=== PATIENT | female | born 1935 | race Caucasian/White ===

== ENCOUNTER → 2016-11-11 | Outpatient (CLI) | payer MEDICARE, MEDICAID ==
[2016-11-11 08:40] LABS: HEMOGLOBIN 14.2 g/dL (12.0-15.5); HGB HCT DIFFERENCE 0.6; MEAN CORPUSCULAR HEMOGLOBIN 32.4 pg (27.0-33.4); MEAN CORPUSCULAR HGB CONC 33.9 g/dL (32.0-36.0); MEAN CORPUSCULAR VOLUME 96 fl (80-97); RED BLOOD COUNT 4.39 10^6/uL (3.72-5.28); RED CELL DISTRIBUTION WIDTH 13.3 % (11.5-14.0); WHITE BLOOD COUNT 7.2 10^3/uL (4.0-10.5)
[2016-11-11 09:04] LABS: ANION GAP 11 (5-19); BLOOD UREA NITROGEN 12 mg/dL (7-20); CALCIUM 9.9 mg/dL (8.4-10.2); CARBON DIOXIDE 31 mmol/L (22-30); CHLORIDE 101 mmol/L (98-107); CREATININE RESULT 1.05 mg/dL (0.52-1.25); GLUCOSE 90 mg/dL (75-110); POTASSIUM 3.4 mmol/L (3.6-5.0); SODIUM 142.8 mmol/L (137-145)
[2016-11-11 18:56] LABS: APPEARANCE,URINE CLEAR; BILIRUBIN,URINE NEGATIVE (NEGATIVE); GLUCOSE, URINE NEGATIVE (NEGATIVE); KETONES,URINE NEGATIVE (NEGATIVE); LEUKOCYTE ESTERASE,URINE SMALL (NEGATIVE); NITRITE,URINE NEGATIVE (NEGATIVE); PROTEIN,URINE NEGATIVE (NEGATIVE); UROBILINOGEN,URINE NEGATIVE mg/dL (<2.0)
== END ==
LOC: OD 07:29
PROVIDERS: ATTEND Internal Medicine Nephrology
DX: I12.9 Hypertensive chronic kidney disease with stage 1 through stage 4 chronic kidney disease, or unspecified chronic kidney disease (principal); N18.3 Chronic kidney disease, stage 3 (moderate)
CPT/HCPCS: 36415; 80048; 81001; 85027

== ENCOUNTER 2016-11-15 19:55 | Emergency (ER) | payer MEDICARE, MEDICAID ==
--- NOTE | 2016-11-15 21:00 | ER Document Report ---
ED Medical Screen (RME) - General Chief Complaint: Laceration Stated Complaint: RIGHT ARM LACERATION Notes: patient is a 81 year old female pw right forearm laceration cut it on a bracket on the fridge, unsure of material not UTD on tetanus full rom of hand, down to subq fat, no visible tendon or bone I have greeted and performed a rapid initial assessment of this patient. A comprehensive ED assessment and evaluation of the patient, analysis of test results and completion of the medical decision making process will be conducted by additional ED providers. TRAVEL OUTSIDE OF THE [place] IN LAST 30 DAYS: No - Related Data Allergies/Adverse Reactions: No Known Allergies Allergy (Verified 12/29/11 18:06) Past Medical History - Social History Chew tobacco use (# tins/day): No Frequency of alcohol use: None Drug Abuse: None - Past Medical History Cardiac Medical History: Reports: Hx Hypertension Renal/ Medical History: Denies: Hx Peritoneal Dialysis Physical Exam - Vital signs Vitals: Temp Pulse Resp BP Pulse Ox 98.5 F 64 16 151/64 H 95 11/15/16 20:23 11/15/16 20:23 11/15/16 20:23 11/15/16 20:23 11/15/16 20:23 Course - Vital Signs Vital signs: Temp Pulse Resp BP Pulse Ox 98.5 F 64 16 151/64 H 95 11/15/16 20:23 11/15/16 20:23 11/15/16 20:23 11/15/16 20:23 11/15/16 20:23
[2016-11-15] MEDS ORDERED: DIPH/PERTUSS(ACELL)/TETANUS VAC/PF 0.5 ML SYR (>=10YO) IM ONE (21:01)
[2016-11-16] MEDS ORDERED: LIDOCAINE 1%/EPINEPHRINE INJ 20 ML VIAL INJ ONE (00:12)
--- NOTE | 2016-11-16 00:13 | ER Document Report ---
ED Wound - General Chief Complaint: Laceration Stated Complaint: RIGHT ARM LACERATION Time seen by provider: 00:12 Mode of Arrival: Ambulatory Information source: Patient TRAVEL OUTSIDE OF THE [place] IN LAST 30 DAYS: No - HPI Patient complains to provider of: Laceration Occurred: Just prior to arrival Onset/Duration: Sudden Quality of pain: Achy Severity: Mild Pain Level: 1 Context: Injury Skin Color: Normal Capillary refill: < 3 seconds Sensations intact: Yes Distal pulses present: Yes Associated Symptoms: None Notes: Patient is an 81-year-old female presenting to the emergency room complaining of laceration to her right forearm, states she was reaching into the refrigerator to put something away when she caught it on the sharp part of the shelf causing a laceration, she initially put a bandage on it and reported to the emergency room when it wouldn't stop bleeding, she denies any other injury or trauma, last tetanus shot is unknown - Related Data Allergies/Adverse Reactions: No Known Allergies Allergy (Verified 12/29/11 18:06) Past Medical History - General Information source: Patient - Social History Smoking Status: Never Smoker Chew tobacco use (# tins/day): No Frequency of alcohol use: None Drug Abuse: None Family History: Reviewed & Not Pertinent Patient has suicidal ideation: No Patient has homicidal ideation: No - Past Medical History Cardiac Medical History: Reports: Hx Hypertension Renal/ Medical History: Denies: Hx Peritoneal Dialysis - Immunizations Hx Diphtheria, Pertussis, Tetanus Vaccination: Yes - NOT UTD Review of Systems - Review of Systems Constitutional: No symptoms reported EENT: No symptoms reported Cardiovascular: No symptoms reported Respiratory: No symptoms reported Gastrointestinal: No symptoms reported Genitourinary: No symptoms reported Female Genitourinary: No symptoms reported Musculoskeletal: No symptoms reported Skin: See HPI Hematologic/Lymphatic: No symptoms reported Neurological/Psychological: No symptoms reported -: Yes All other systems reviewed and negative Physical Exam - Vital signs Vitals: Temp Pulse Resp BP Pulse Ox 98.5 F 64 16 151/64 H 95 11/15/16 20:23 11/15/16 20:23 11/15/16 20:23 11/15/16 20:23 11/15/16 20:23 Interpretation: Normal - Notes Notes: - General General appearance: Appears well, Alert In distress: None - HEENT Head: Normocephalic, Atraumatic Eyes: Normal Conjunctiva: Normal Extraocular movements intact: Yes Eyelashes: Normal Pupils: PERRL - Respiratory Respiratory status: No respiratory distress - Cardiovascular Rhythm: Regular - Abdominal Inspection: Normal - Back Back: Normal - Extremities General upper extremity: 3 cm laceration to dorsal surface of right proximal forearm, small amount of adipose tissue exposed, distal sensation and motor is intact with 2+ radial pulses General lower extremity: Normal inspection - Neurological Neuro grossly intact: Yes Orientation: AAOx4 [place] Coma Scale Eye Opening: Spontaneous [place] Coma Scale Verbal: Oriented [place] Coma Scale Motor: Obeys Commands [place] Coma Scale Total: 15 - Psychological Associated symptoms: Normal affect, Normal mood - Skin Skin Temperature: Warm Skin Moisture: Dry Skin Color: Normal Course - Re-evaluation Re-evalutation: 11/16/16 00:53 Patient with laceration repaired using sutures, see procedure note, she was given a tetanus shot emergency room and discharged with instructions for follow- up, advised to return if symptoms worsen, patient acknowledges understanding and agreement with this - Vital Signs Vital signs: Temp Pulse Resp BP Pulse Ox 98.5 F 64 16 151/64 H 95 11/15/16 20:23 11/15/16 20:23 11/15/16 20:23 11/15/16 20:23 11/15/16 20:23 Procedures - Laceration/Wound Repair Right Arm Time completed: 00:52 Wound length (cm): 3 Wound's Depth, Shape: Linear Laceration pre-procedure: Sterile PPE donned, Sterile drapes applied, Shur- Clens applied Anesthetic type: 1% Lidocaine w/epi Volume Anesthetic (mLs): 6 Wound explored: Clean Irrigated w/ Saline (mLs): 300 Wound Repaired With: Sutures Suture Size/Type: 4:0, Nylon Number of Sutures: 3 Layer Closure?: No Post-procedure wound care: Sterile dressing applied Post-procedure NV exam normal: Yes Complications: No Adult Front & Back picture: 1 - 3 cm laceration Discharge - Discharge Clinical Impression: Forearm laceration Qualifiers: Encounter type: initial encounter Laterality: right Qualified Code(s): S51.811A - Laceration without foreign body of right forearm, initial encounter Condition: Stable Disposition: HOME, SELF-CARE Instructions: Antibiotic Ointment Protection (OM), Laceration Care (OM), Tetanus Immunization Given ([facility]), Soap Cleansing ([facility]) Additional Instructions: Follow up with your primary care provider in 2-3 days for wound check. Keep wound clean and covered with antibiotic ointment and a clean dressing. Gently rinse with warm water and soap twice daily. Sutures to be removed in 10-14 days. Return to the emergency room immediately if symptoms worsen or any additional concerns. Referrals: JESSIE JOHNSON MD [Primary Care Provider] - Follow up as needed
[2016-11-16] MEDS ORDERED: DIPH/PERTUSS(ACELL)/TETANUS VAC/PF 0.5 ML SYR (>=10YO) IM ONE (00:24)
[2016-11-16 01:04] VITALS: BP 111/65
== END 2016-11-16 01:08 | disposition home or self-care (01) ==
LOC: ER 19:55
PROC: 0HQDXZZ Repair Right Lower Arm Skin, External Approach (ICD-10-PCS; principal; 2016-11-15)
DX: S51.811A Laceration without foreign body of right forearm, initial encounter (principal); W45.8XXA Other foreign body or object entering through skin, initial encounter
CPT/HCPCS: 99283; 90715; 12002; J3490

== ENCOUNTER 2016-11-22 07:06 | Emergency (ER) | payer MEDICARE, MEDICAID ==
[2016-11-22 07:26] VITALS: BP 153/76
--- NOTE | 2016-11-22 07:43 | ER Document Report ---
HPI - HPI Patient complains to provider of: suture removal Onset: Other - 11/15 16 Pain Level: Denies Associated Symptoms: None Exacerbated by: Denies Relieved by: Denies Similar symptoms previously: Yes Recently seen / treated by doctor: Yes - REPRODUCTIVE Reproductive: DENIES: : - DERM Skin Color: Normal Past Medical History - General Information source: Patient - Social History Smoking Status: Never Smoker Chew tobacco use (# tins/day): No Frequency of alcohol use: None Drug Abuse: None Family History: Reviewed & Not Pertinent Patient has suicidal ideation: No Patient has homicidal ideation: No - Past Medical History Cardiac Medical History: Reports: Hx Hypertension Renal/ Medical History: Denies: Hx Peritoneal Dialysis - Immunizations Hx Diphtheria, Pertussis, Tetanus Vaccination: Yes - NOT UTD Vertical Provider Document - CONSTITUTIONAL Agree With Documented VS: Yes Exam Limitations: No Limitations General Appearance: WD/WN, No Apparent Distress - INFECTION CONTROL TRAVEL OUTSIDE OF THE [place] IN LAST 30 DAYS: No - HEENT HEENT: Atraumatic, Normocephalic - NECK Neck: Normal Inspection, Supple - RESPIRATORY Respiratory: Breath Sounds Normal, No Respiratory Distress O2 Sat by Pulse Oximetry: 100 - CARDIOVASCULAR Cardiovascular: Regular Rate - MUSCULOSKELETAL/EXTREMETIES Musculoskeletal/Extremeties: MAEW, FROM, Non-Tender - NEURO Level of Consciousness: Awake, Alert, Appropriate Motor/Sensory: No Motor Deficit - DERM Integumentary: Laceration - 3 sutures intact to RFA, site benign, no warmth/ erythema/swelling or discharge Course - Re-evaluation Re-evalutation: 11/22/16 08:10 pt instructed to continue to monitor site for any signs of infection, return as indicated - Vital Signs Vital signs: Temp Pulse Resp BP Pulse Ox 97.5 F 61 17 153/76 H 100 11/22/16 07:25 11/22/16 07:25 11/22/16 07:25 11/22/16 07:25 11/22/16 07:25 Discharge - Discharge Clinical Impression: Visit for suture removal, Elevated blood pressure reading Condition: Stable Disposition: HOME, SELF-CARE Instructions: Suture Removal Additional Instructions: *You have been treated for a suture removal *Continue to monitor the site for signs of infection such as increasing pain, redness, swelling, warmth *Keep the area clean *Follow up with a primary care provider within one week for recheck *Return to ED for signs of infection, worsening condition, changes, needs Forms: Elevated Blood Pressure
== END 2016-11-22 08:04 | disposition home or self-care (01) ==
LOC: ER 07:06
DX: T14.8 Other injury of unspecified body region (principal); X58.XXXD Exposure to other specified factors, subsequent encounter; I10 Essential (primary) hypertension

== ENCOUNTER 2016-12-20 20:30 | Emergency (ER) | payer MEDICARE, MEDICAID ==
[2016-12-20 20:42] VITALS: BP 181/70
--- NOTE | 2016-12-20 21:28 | ER Document Report ---
ED Medical Screen (RME) - General Stated Complaint: RECTAL BLEEDING Notes: Patient states she had a hard bowel movement today, and noticed a little blood in the stool at that time. Now whenever she sits down on the commode or in the chair, pt states a large amount of blood is running out of her rectum. Does have a history of hemorrhoids, which she states were repaired by M.D.with banding. patient denies rectal pain. Went to restroom since being here at hospital, and blood passed again. I have greeted and performed a rapid initial assessment of this patient. A comprehensive ED assessment and evaluation of the patient, analysis of test results and completion of the medical decision making process will be conducted by additional ED providers. TRAVEL OUTSIDE OF THE [place] IN LAST 30 DAYS: No - Related Data Allergies/Adverse Reactions: No Known Allergies Allergy (Verified 11/22/16 07:23) Past Medical History - Past Medical History Cardiac Medical History: Reports: Hx Hypertension Renal/ Medical History: Denies: Hx Peritoneal Dialysis - Immunizations Hx Diphtheria, Pertussis, Tetanus Vaccination: Yes - NOT UTD Physical Exam - Vital signs Vitals: Temp Pulse Resp BP Pulse Ox 97.8 F 68 20 181/70 H 94 12/20/16 20:40 12/20/16 20:40 12/20/16 20:40 12/20/16 20:40 12/20/16 20:40 - Abdominal Inspection: Normal Bowel sounds: Normal Tenderness: Nontender Course - Vital Signs Vital signs: Temp Pulse Resp BP Pulse Ox 97.8 F 68 20 181/70 H 94 12/20/16 20:40 12/20/16 20:40 12/20/16 20:40 12/20/16 20:40 12/20/16 20:40
--- NOTE | 2016-12-21 01:39 | ER Document Report ---
ED GI Bleed / Rectal Pain - General Chief Complaint: Rectal Bleeding Stated Complaint: RECTAL BLEEDING Time seen by provider: 01:38 Mode of Arrival: Ambulatory Information source: Patient TRAVEL OUTSIDE OF THE [place] IN LAST 30 DAYS: No - HPI Patient complains to provider of: Bright red bld from rect. Onset: Just prior to arrival Timing/Duration: Sudden Quality of pain: No pain Rectal bleeding: Bright red blood on paper Exacerbated by: Denies Relieved by: Denies Similar symptoms previously: Yes Recently seen / treated by doctor: No Notes: Patient is an 81-year-old female presenting to the emergency room complaining of bright red blood per rectum with bowel movement today, states she's been constipated for a few days and today had a large hard formed stool, and developed bright red blood per rectum afterwards, she denies any abdominal pain , no fever or chills, no lightheadedness, denies having any rectal., Has a history of hemorrhoids which she had surgery with local heel buffer for in the past - Related Data Allergies/Adverse Reactions: No Known Allergies Allergy (Verified 11/22/16 07:23) Past Medical History - General Information source: Patient - Social History Smoking Status: Never Smoker Chew tobacco use (# tins/day): No Frequency of alcohol use: None Drug Abuse: None Family History: Reviewed & Not Pertinent Patient has suicidal ideation: No Patient has homicidal ideation: No - Past Medical History Cardiac Medical History: Reports: Hx Hypertension Renal/ Medical History: Denies: Hx Peritoneal Dialysis - Immunizations Hx Diphtheria, Pertussis, Tetanus Vaccination: Yes - NOT UTD Review of Systems - Review of Systems Constitutional: No symptoms reported EENT: No symptoms reported Cardiovascular: No symptoms reported Respiratory: No symptoms reported Gastrointestinal: Rectal bleeding Genitourinary: No symptoms reported Female Genitourinary: No symptoms reported Musculoskeletal: No symptoms reported Skin: No symptoms reported Hematologic/Lymphatic: No symptoms reported Neurological/Psychological: No symptoms reported -: Yes All other systems reviewed and negative Physical Exam - Vital signs Vitals: Temp Pulse Resp BP Pulse Ox 97.8 F 68 20 181/70 H 94 12/20/16 20:40 12/20/16 20:40 12/20/16 20:40 12/20/16 20:40 12/20/16 20:40 Interpretation: Normal - General General appearance: Appears well, Alert - HEENT Head: Normocephalic, Atraumatic Eyes: Normal Pupils: PERRL - Respiratory Respiratory status: No respiratory distress Chest status: Nontender Breath sounds: Normal Chest palpation: Normal - Cardiovascular Rhythm: Regular Heart sounds: Normal auscultation Murmur: No - Abdominal Inspection: Normal Distension: No distension Bowel sounds: Normal Tenderness: Nontender Organomegaly: No organomegaly - Rectal Tenderness: No Stool: Bloody - Small amount of bright red blood, small rectal tear visible - Back Back: Normal, Nontender - Extremities General upper extremity: Normal inspection, Nontender, Normal color, Normal ROM , Normal temperature General lower extremity: Normal inspection, Nontender, Normal color, Normal ROM , Normal temperature, Normal weight bearing. No: Janette's sign - Neurological Neuro grossly intact: Yes Cognition: Normal Orientation: AAOx4 [place] Coma Scale Eye Opening: Spontaneous [place] Coma Scale Verbal: Oriented [place] Coma Scale Motor: Obeys Commands [place] Coma Scale Total: 15 Speech: Normal Motor strength normal: LUE, RUE, LLE, RLE Sensory: Normal - Psychological Associated symptoms: Normal affect, Normal mood - Skin Skin Temperature: Warm Skin Moisture: Dry Skin Color: Normal Course - Re-evaluation Re-evalutation: 12/21/16 02:11 Patient with bright red blood per rectum from rectal tear after having a large formed bowel movements, laboratory findings were unremarkable, as were physical exam and vital signs findings, patient was advised to take a daily stool softener, follow up with her primary care provider or return if symptoms worsen , patient acknowledges understanding and agreement with this plan - Vital Signs Vital signs: Temp Pulse Resp BP Pulse Ox 97.8 F 68 20 181/70 H 94 12/20/16 20:40 12/20/16 20:40 12/20/16 20:40 12/20/16 20:40 12/20/16 20:40 - Laboratory Result Diagrams: 12/21/16 01:25 12/21/16 01:25 Laboratory results interpreted by me: 12/21/16 01:25 Potassium 3.1 L Glucose 122 H Alkaline Phosphatase 136 H Discharge - Discharge Clinical Impression: Rectal tear Condition: Stable Disposition: HOME, SELF-CARE Instructions: Rectal Bleeding, Unclear Cause ([facility]) Additional Instructions: Drink plenty water. Take a daily stool softener. Follow-up with her primary care provider and heel buffer within the next week. Return to the emergency room immediately if symptoms worsen or any additional concerns. Prescriptions: Docusate Sodium [Colace 100 mg Capsule] 100 mg PO BID #60 capsule Referrals: JESSIE JOHNSON MD [Primary Care Provider] - Follow up as needed
[2016-12-21 01:46] LABS: ABSOLUTE BASOPHILS # (AUTO) 0.1 10^3/uL (0.0-0.2); ABSOLUTE EOSINOPHILS # (AUTO) 0.1 10^3/uL (0.0-0.6); ABSOLUTE MONOCYTES (AUTO) 0.8 10^3/uL (0.1-1.4); BASOPHILS % (AUTO) 0.6 % (0-2); EOSINOPHILS % (AUTO) 0.5 % (0-6); HEMATOCRIT 43.8 % (36.0-47.0); HEMOGLOBIN 14.7 g/dL (12.0-15.5); HGB HCT DIFFERENCE 0.3; MEAN CORPUSCULAR HEMOGLOBIN 31.8 pg (27.0-33.4); MEAN CORPUSCULAR HGB CONC 33.7 g/dL (32.0-36.0); MEAN CORPUSCULAR VOLUME 95 fl (80-97); MONOCYTES % (AUTO) 8.5 % (3-13); RED BLOOD COUNT 4.63 10^6/uL (3.72-5.28); RED CELL DISTRIBUTION WIDTH 13.1 % (11.5-14.0); SEGMENTED NEUTROPHILS % (AUTO) 70.4 % (42-78); WHITE BLOOD COUNT 9.9 10^3/uL (4.0-10.5)
[2016-12-21 01:59] LABS: ALANINE AMINOTRANSFERASE 38 U/L (9-52); ALBUMIN 4.1 g/dL (3.5-5.0); ALKALINE PHOSPHATASE 136 U/L (38-126); ANION GAP 14 (5-19); ASPARTATE AMINO TRANSFERASE 32 U/L (14-36); BILIRUBIN,TOTAL 0.6 mg/dL (0.2-1.3); BLOOD UREA NITROGEN 9 mg/dL (7-20); CALCIUM 10.2 mg/dL (8.4-10.2); CARBON DIOXIDE 28 mmol/L (22-30); CHLORIDE 101 mmol/L (98-107); CREATININE RESULT 0.81 mg/dL (0.52-1.25); GLUCOSE 122 mg/dL (75-110); POTASSIUM 3.1 mmol/L (3.6-5.0); SODIUM 143.3 mmol/L (137-145); TOTAL PROTEIN 7.4 g/dL (6.3-8.2)
== END 2016-12-21 02:01 | disposition home or self-care (01) ==
LOC: ER 20:30
DX: S36.63XA Laceration of rectum, initial encounter (principal); X58.XXXA Exposure to other specified factors, initial encounter; K59.00 Constipation, unspecified; I10 Essential (primary) hypertension
CPT/HCPCS: 36415; 80053; 85025; 99283

== ENCOUNTER → 2017-03-21 | Outpatient (CLI) | payer MEDICARE, MEDICAID ==
--- NOTE | 2017-03-21 08:37 | RADIOLOGY REPORT (SQ) ---
EXAM DESCRIPTION: FOOT LEFT COMPLETE COMPLETED DATE/TIME: 03/21/2017 8:16 am REASON FOR STUDY: PAIN IN LEFT FOOT M79.672 PAIN IN LEFT FOOT COMPARISON: None. NUMBER OF VIEWS: Three views. TECHNIQUE: AP, lateral and oblique without weight bearing radiographic images acquired of the left f oot. LIMITATIONS: None. FINDINGS: MINERALIZATION: Normal. BONES: No acute fracture or dislocation. No worrisome bone lesions. No significant osteophytes. JOINTS: No erosions. No herminia-articular osteopenia. No chondrocalcinosis. SOFT TISSUES: No swelling. No calcifications. OTHER: No other significant finding. IMPRESSION: NEGATIVE STUDY OF THE LEFT FOOT. NO EXPLANATION FOR PAIN. TECHNICAL DOCUMENTATION: JOB ID: [id number] [employer]- All Rights Reserved
== END ==
LOC: OD 07:47
PROVIDERS: ATTEND Physician Assistant
DX: M79.672 Pain in left foot (principal)

== ENCOUNTER → 2017-07-01 | Outpatient (CLI) | payer MEDICARE, MEDICAID ==
--- NOTE | 2017-07-01 16:47 | XCELERA REPORT ---
[address] [address] Lower Extremity Arterial Evaluation Name: ALEK TOPETE Age: 81 yrs Gender: Female : 1935 Patient Status: Outpatient Patient Location: Study Date: 07/01/2017 09:14 AM Procedure: A color flow and duplex scan of the lower extremity arteries was performed on the right with velocity and waveform anaylsis. Reason For Study: FLORENCIA DING M79.604 Ordering Physician: PETER MORALES Performed By: Raheem Musa Measurements and Calculations Right Left Prox PFA PSV 90.6 cm/sec Prox SFA PSV 76.9 cm/sec Mid SFA PSV 75.4 cm/sec Dist SFA PSV 75.8 cm/sec Dist CIGAR HEAD PEGGER PSV 37.1 cm/sec Dist Donita A PSV 72.2 cm/sec Right Side Arterial Evaluation Normal velocity and triphasic waveforms noted from the Common Femoral artery to the Popliteal artery. Biphasic in the Posterior Tibial artery. 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 . Occlusion and stenosis as noted . Ankle Brachial index was not done. Interpretation Summary Moderate hemodynamically significant lesions in the right lower extremity only, on duplex imaging, at rest. : PETER MORALES > Maxime Rosenberg
== END ==
LOC: SP 08:56
PROVIDERS: ATTEND Physician Assistant
DX: M79.604 Pain in right leg (principal)
CPT/HCPCS: 93926

== ENCOUNTER → 2017-10-23 | Outpatient (CLI) | payer MEDICARE, MEDICAID ==
--- NOTE | 2017-10-23 08:52 | RADIOLOGY REPORT (SQ) ---
EXAM DESCRIPTION: LUMBAR SPINE COMPLETE COMPLETED DATE/TIME: 10/23/2017 8:21 am REASON FOR STUDY: SCIATICA, RIGHT SIDE M54.31 SCIATICA, RIGHT SIDE COMPARISON: None. NUMBER OF VIEWS: Five views including obliques. TECHNIQUE: AP, lateral, oblique, and sacral radiographic images acquired of the lumbar spine. LIMITATIONS: None. FINDINGS: MINERALIZATION: Normal. SEGMENTATION: Normal. No transitional anatomy. ALIGNMENT: Lumbar scoliosis convex left. VERTEBRAE AND DISC: 5 non rib-bearing lumbar type vertebrae. Marginal osteophyte formation at multi ple levels from L1-L5 consistent with degenerative spondylosis. Degenerative disc disease noted L3-4 . 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 IMPRESSION: NORMAL 5 VIEW LUMBAR SPINE. TECHNICAL DOCUMENTATION: JOB ID: [id number] [employer]- All Rights Reserved
== END ==
LOC: OD 08:09
PROVIDERS: ATTEND Physician Assistant
DX: M54.31 Sciatica, right side (principal)
CPT/HCPCS: 72110

== ENCOUNTER → 2017-11-10 | Outpatient (CLI) | payer MEDICARE, MEDICAID ==
[2017-11-10 08:30] LABS: HEMATOCRIT 40.8 % (36.0-47.0); HEMOGLOBIN 13.6 g/dL (12.0-15.5); MEAN CORPUSCULAR HEMOGLOBIN 30.9 pg (27.0-33.4); MEAN CORPUSCULAR HGB CONC 33.3 g/dL (32.0-36.0); MEAN CORPUSCULAR VOLUME 93 fl (80-97); PLATELET COUNT 253 10^3/uL (150-450); RED CELL DISTRIBUTION WIDTH 13.8 % (11.5-14.0); WHITE BLOOD COUNT 7.6 10^3/uL (4.0-10.5)
[2017-11-10 08:52] LABS: ANION GAP 10 (5-19); BLOOD UREA NITROGEN 11 mg/dL (7-20); CALCIUM 9.9 mg/dL (8.4-10.2); CARBON DIOXIDE 29 mmol/L (22-30); CHLORIDE 103 mmol/L (98-107); GLUCOSE 95 mg/dL (75-110); POTASSIUM 3.5 mmol/L (3.6-5.0); SODIUM 141.5 mmol/L (137-145)
[2017-11-11 08:40] LABS: APPEARANCE,URINE CLEAR; BILIRUBIN,URINE NEGATIVE (NEGATIVE); COLOR,URINE STRAW; GLUCOSE, URINE NEGATIVE (NEGATIVE); KETONES,URINE NEGATIVE (NEGATIVE); LEUKOCYTE ESTERASE,URINE MODERATE (NEGATIVE); NITRITE,URINE NEGATIVE (NEGATIVE); PROTEIN,URINE NEGATIVE (NEGATIVE); URINE SPECIFIC GRAVITY 1.006; UROBILINOGEN,URINE NEGATIVE mg/dL (<2.0)
== END ==
LOC: OD 07:21
PROVIDERS: ATTEND Internal Medicine Nephrology
DX: I12.9 Hypertensive chronic kidney disease with stage 1 through stage 4 chronic kidney disease, or unspecified chronic kidney disease (principal); N18.2 Chronic kidney disease, stage 2 (mild)
CPT/HCPCS: 36415; 80048; 81001; 85027

== ENCOUNTER 2017-12-07 13:11 | Emergency (ER) | payer MEDICARE, MEDICAID ==
[2017-12-07 13:18] VITALS: BP 182/72
[2017-12-07] MEDS ORDERED: DIPH/PERTUSS(ACELL)/TETANUS VAC/PF 0.5 ML SYR (>=10YO) IM ONE (14:18)
--- NOTE | 2017-12-07 14:23 | ER Document Report ---
ED General - General Mode of Arrival: Ambulatory Information source: Patient TRAVEL OUTSIDE OF THE [place] IN LAST 30 DAYS: No - General Chief Complaint: Rectal Bleeding Stated Complaint: RECTAL BLEEDING Time Seen by Provider: 12/07/17 14:08 Notes: 82 y.o female presents to the ED with rectal bleeding of onset yesterday. She states that it is a scant amount on toilet paper when she wipes. She denies any pain or constipation. Denies being on any blood thinners. Her PCP is Dr. Aquino. (DEB OROZCO) - Related Data Allergies/Adverse Reactions: levofloxacin [From Levaquin] Adverse Reaction (Severe, Verified 12/07/17 14:07) Nausea ciprofloxacin [From Cipro] Adverse Reaction (Intermediate, Verified 12/07/17 14: 07) Nausea Past Medical History - General Information source: Patient - Social History Smoking Status: Never Smoker Chew tobacco use (# tins/day): No Frequency of alcohol use: None Drug Abuse: None Family History: Reviewed & Not Pertinent Patient has suicidal ideation: No Patient has homicidal ideation: No - Past Medical History Cardiac Medical History: Reports: Hx Hypertension Renal/ Medical History: Denies: Hx Peritoneal Dialysis - Immunizations Hx Diphtheria, Pertussis, Tetanus Vaccination: Yes - NOT UTD Review of Systems - Review of Systems Gastrointestinal: See HPI, Other - Small amount of rectal bleeding. denies: Abdominal pain, Constipation Physical Exam - General General appearance: Appears well, Alert In distress: None - HEENT Head: Normocephalic, Other - Skin tear to Lt facial cheek Eyes: Normal Conjunctiva: Normal - Respiratory Respiratory status: No respiratory distress Chest status: Nontender Breath sounds: Normal Chest palpation: Normal - Cardiovascular Rhythm: Regular Heart sounds: Normal auscultation Murmur: No - Abdominal Inspection: Normal Distension: No distension Bowel sounds: Normal Tenderness: Nontender - Extremities General upper extremity: Normal inspection, Normal ROM General lower extremity: Normal inspection, Normal ROM - Neurological Neuro grossly intact: Yes Cognition: Normal Orientation: AAOx4 - Psychological Associated symptoms: Normal affect, Normal mood - Skin Skin Temperature: Warm Skin Moisture: Dry Skin Color: Normal Skin irregularity: Laceration Location of irregularity: Face - LT cheek - Vital signs Vitals: Temp Pulse Resp BP Pulse Ox 98.8 F 72 18 182/72 H 97 12/07/17 13:16 12/07/17 13:16 12/07/17 13:16 12/07/17 13:16 12/07/17 13:16 - Vital Signs Vital signs: Temp Pulse Resp BP Pulse Ox 98.8 F 72 18 182/72 H 97 12/07/17 13:16 12/07/17 13:16 12/07/17 13:16 12/07/17 13:16 12/07/17 13:16 Discharge - Discharge Clinical Impression: Hematochezia Condition: Good Disposition: HOME, SELF-CARE Instructions: Rectal Bleeding, Unclear Cause ([facility]) Additional Instructions: Per conversation, please follow-up with your doctor has been following you regarding her hemorrhoids. Return to the emergency department if symptoms are worsening or you begin to experience rectal or abdominal pain with rectal bleeding. Referrals: JESSIE JOHNSON MD [Primary Care Provider] - Follow up as needed Scribe Attestation: 12/08/17 23:12 I personally performed the services described documentation, reviewed and edited the documentation which was dictated to describe my presence, and it accurately records my words and actions. (CELIO LINDA) Scribe Documentation - Scribe Written by Tasha:: Tasha Sarabia, 12/07/17 [id number] acting as scribe for :: Benny
== END 2017-12-07 14:50 | disposition home or self-care (01) ==
LOC: ER 13:11
DX: K92.1 Melena (principal)
CPT/HCPCS: 90471; 90715; 99283

== ENCOUNTER → 2018-01-28 | Outpatient (CLI) | payer MEDICARE, MEDICAID ==
--- NOTE | 2018-01-28 14:23 | WOMENS IMAGING REPORT ---
EXAM DESCRIPTION: 3D SCREENING MAMMO BILAT COMPLETED DATE/TIME: 01/28/2018 8:22 am REASON FOR STUDY: ROUTINE SCREENING;Z12.31 Z12.31 ENCNTR SCREEN MAMMOGRAM FOR MALIGNANT NEOPLASM OF NEHEMIAS COMPARISON: 05/03/2016 TECHNIQUE: Standard craniocaudal and mediolateral oblique views of each breast recorded using digita l acquisition and breast tomosynthesis. LIMITATIONS: None. FINDINGS: Findings present which are benign by mammographic criteria. No suspicious masses, calcifi cations or architectural distortion. Pertinent benign findings: Bilateral calcifications, benign Read with the assistance of CAD. .[facility] - R2 Cenova Version 1.3 .[facility] - R2 Cenova Version 1.3 .[facility] - R2 Cenova Version 2.4 .[facility] - R2 Cenova Version 2.4 .[facility] - R2 Mud Car Worker Version 9.2 Benign mammographic findings may include one or more of the following: Smooth masses, popcorn/rim/co arse calcifications, asymmetries, post-procedure changes, and lesions with long-standing stability. IMPRESSION: BENIGN MAMMOGRAPHIC FINDINGS. BIRADS 2 BREAST DENSITY: b. There are scattered areas of fibroglandular density. BIRAD: 2 BENIGN FINDING(S) RECOMMENDATION: RECOMMENDATION: ROUTINE SCREENING Please continue yearly bilateral screening in January 2019. Consider bilateral screening tomosynthesis COMMENT: The patient has been notified of the results by letter per MQSA requirements. Additional no tification policies are in place for contacting patient with suspicious or incomplete findings. Quality ID #[id number]: The [employer] recommends an annual screening mammogram for women aged 40 years or over. This facility utilizes a reminder system to ensure that all patients receive reminder letters, and/or direct phone calls for appointments. This includes reminders for routine scr eening mammograms, diagnostic mammograms, or other Breast Imaging Interventions when appropriate. Th is patient will be placed in the appropriate reminder system. The [employer] (ACR) has developed recommendations for screening MRI of the breast s in certain patient populations, to be used in conjunction with mammography. Breast MRI surveillanc e may be appropriate for women with more than 20% lifetime risk of developing breast cancer as deter mined by genetic testing, significant family history of the disease, or history of mantle radiation f or Hodgkins Disease. ACR Practice Guidelines 2008. DBT Technology DBT is a type of tomographic mammography. With conventional mammography, overlapping breast tissue ma y make lesions difficult to detect, even with good compression. DBT uses an x-ray tube that rotates a round the breast, taking images at different angles. These images are then combined to create thin sl ices of the breast that the radiologist can view as a 3D reconstruction. The 72xuan unit can perform full-field digital mammograms (2D imaging); or DBT (3D imaging); or both, in a combination mode that quickly performs both the mammogram and the tomosynthesis scan while the breast is still compressed. PQRS 6045F: Fluoroscopic imaging is not utilized for breast tomosynthesis. TECHNICAL DOCUMENTATION: FINDING NUMBER: (1) ASSESSMENT: (1) JOB ID: [id number] [employer]- All Rights Reserved Reading location - IP/workstation name: [email or web address]-[email or web address]
== END ==
LOC: WI 08:23
PROVIDERS: ATTEND Physician Assistant
DX: Z12.31 Encounter for screening mammogram for malignant neoplasm of breast (principal)
CPT/HCPCS: 77063; 77067

== ENCOUNTER 2018-08-15 19:01 | Emergency (ER) | payer MEDICARE, MEDICAID ==
[2018-08-15 19:08] VITALS: BP 177/74
--- NOTE | 2018-08-15 19:16 | ER Document Report ---
ED Medical Screen (RME) - General Chief Complaint: Rectal Bleeding Stated Complaint: RECTUM BLEEDING Time Seen by Provider: 08/15/18 19:14 Mode of Arrival: Ambulatory Information source: Patient TRAVEL OUTSIDE OF THE [place] IN LAST 30 DAYS: No - HPI Patient complains to provider of: rectal bleeding Onset: Other - pt with recent hemorrhoid surgery with rectal bleeding for the past day - Related Data Allergies/Adverse Reactions: levofloxacin [From Levaquin] Adverse Reaction (Severe, Verified 12/07/17 14:07) Nausea ciprofloxacin [From Cipro] Adverse Reaction (Intermediate, Verified 12/07/17 14: 07) Nausea Past Medical History - Social History Frequency of alcohol use: None - Past Medical History Cardiac Medical History: Reports: Hx Hypercholesterolemia, Hx Hypertension Denies: Hx Congestive Heart Failure Pulmonary Medical History: Denies: Hx COPD Endocrine Medical History: Denies: Hx Diabetes Mellitus Type 1, Hx Diabetes Mellitus Type 2 Renal/ Medical History: Denies: Hx Peritoneal Dialysis Musculoskeltal Medical History: Reports Hx Arthritis - Immunizations Hx Diphtheria, Pertussis, Tetanus Vaccination: Yes - NOT UTD Physical Exam - Vital signs Vitals: Temp Pulse Resp BP Pulse Ox 98.4 F 72 17 177/74 H 96 08/15/18 19:07 08/15/18 19:07 08/15/18 19:07 08/15/18 19:07 08/15/18 19:07 Course - Vital Signs Vital signs: Temp Pulse Resp BP Pulse Ox 98.4 F 72 17 177/74 H 96 08/15/18 19:07 08/15/18 19:07 08/15/18 19:07 08/15/18 19:07 08/15/18 19:07 Doctor's Discharge - Discharge Referrals: ODILON LION PA [Primary Care Provider] - Follow up as needed
[2018-08-15 19:39] LABS: ABSOLUTE EOSINOPHILS # (AUTO) 0.1 10^3/uL (0.0-0.6); ABSOLUTE LYMPHOCYTES (AUTO) 2.7 10^3/uL (0.5-4.7); ABSOLUTE NEUT (AUTO) 5.3 10^3/uL (1.7-8.2); BASOPHILS % (AUTO) 0.5 % (0-2); EOSINOPHILS % (AUTO) 1.3 % (0-6); HEMATOCRIT 39.9 % (36.0-47.0); HEMOGLOBIN 13.6 g/dL (12.0-15.5); LYMPHOCYTES % (AUTO) 29.6 % (13-45); MEAN CORPUSCULAR HEMOGLOBIN 32.1 pg (27.0-33.4); MEAN CORPUSCULAR VOLUME 95 fl (80-97); MONOCYTES % (AUTO) 10.5 % (3-13); PLATELET COUNT 276 10^3/uL (150-450); RED BLOOD COUNT 4.23 10^6/uL (3.72-5.28); RED CELL DISTRIBUTION WIDTH 13.7 % (11.5-14.0); SEGMENTED NEUTROPHILS % (AUTO) 58.1 % (42-78); TOTAL CELLS COUNTED % (AUTO) 100 %; WHITE BLOOD COUNT 9.2 10^3/uL (4.0-10.5)
[2018-08-15 19:51] LABS: ALANINE AMINOTRANSFERASE 20 U/L (9-52); ALKALINE PHOSPHATASE 73 U/L (38-126); ANION GAP 14 (5-19); ASPARTATE AMINO TRANSFERASE 29 U/L (14-36); BILIRUBIN,DIRECT 0.1 mg/dL (0.0-0.4); BILIRUBIN,TOTAL 0.6 mg/dL (0.2-1.3); BLOOD UREA NITROGEN 10 mg/dL (7-20); CALCIUM 9.6 mg/dL (8.4-10.2); CARBON DIOXIDE 29 mmol/L (22-30); CHLORIDE 100 mmol/L (98-107); GLUCOSE 119 mg/dL (75-110); POTASSIUM 3.6 mmol/L (3.6-5.0); SODIUM 142.5 mmol/L (137-145); TOTAL PROTEIN 7.1 g/dL (6.3-8.2)
--- NOTE | 2018-08-15 21:23 | ER Document Report ---
ED General - General Chief Complaint: Rectal Bleeding Stated Complaint: RECTUM BLEEDING Time Seen by Provider: 08/15/18 19:14 Mode of Arrival: Ambulatory TRAVEL OUTSIDE OF THE [place]. IN LAST 30 DAYS: No - HPI Patient complains to provider of: Rectal bleeding Notes: Patient coming in for evaluation of rectal bleeding. Patient states day prior to arrival had 6 bowel movements upon last bowel movement and noticed bright red blood whenever she was wiping. Patient has a history significant for multiple hemorrhoids removal done by Dr. Cardona. Patient states last hemorrhoid banding was approximately 3 weeks ago. Patient denies any fevers chills nausea vomiting diarrhea denies any black stool or tarry stool. Resting comfortably upon my evaluation. - Related Data Allergies/Adverse Reactions: levofloxacin [From Levaquin] Adverse Reaction (Severe, Verified 12/07/17 14:07) Nausea ciprofloxacin [From Cipro] Adverse Reaction (Intermediate, Verified 12/07/17 14: 07) Nausea Past Medical History - General Information source: Patient - Social History Smoking Status: Former Smoker Frequency of alcohol use: None Family History: Reviewed & Not Pertinent Patient has suicidal ideation: No Patient has homicidal ideation: No - Past Medical History Cardiac Medical History: Reports: Hx Hypercholesterolemia, Hx Hypertension Denies: Hx Congestive Heart Failure Pulmonary Medical History: Denies: Hx COPD Endocrine Medical History: Denies: Hx Diabetes Mellitus Type 1, Hx Diabetes Mellitus Type 2 Renal/ Medical History: Denies: Hx Peritoneal Dialysis Musculoskeletal Medical History: Reports Hx Arthritis - Immunizations Hx Diphtheria, Pertussis, Tetanus Vaccination: Yes - NOT UTD Review of Systems - Review of Systems Constitutional: No symptoms reported EENT: No symptoms reported Cardiovascular: No symptoms reported Respiratory: No symptoms reported Gastrointestinal: Rectal bleeding Genitourinary: No symptoms reported Female Genitourinary: No symptoms reported Musculoskeletal: No symptoms reported Skin: No symptoms reported Hematologic/Lymphatic: No symptoms reported Neurological/Psychological: No symptoms reported -: Yes All other systems reviewed and negative Physical Exam - Vital signs Vitals: Temp Pulse Resp BP Pulse Ox 98.4 F 72 17 177/74 H 96 08/15/18 19:07 08/15/18 19:07 08/15/18 19:07 08/15/18 19:07 08/15/18 19:07 Interpretation: Normal - General General appearance: Appears well, Alert - HEENT Head: Normocephalic, Atraumatic Eyes: Normal Pupils: PERRL - Respiratory Respiratory status: No respiratory distress Chest status: Nontender Breath sounds: Normal Chest palpation: Normal - Cardiovascular Rhythm: Regular Heart sounds: Normal auscultation Murmur: No - Abdominal Inspection: Normal Distension: No distension Bowel sounds: Normal Tenderness: Nontender Organomegaly: No organomegaly - Rectal Stool: Other - Light brown stool on rectal examination Hemorrhoids: External - External hemorrhoid with scant amount of bleeding - Back Back: Normal, Nontender - Extremities General upper extremity: Normal inspection, Nontender, Normal color, Normal ROM , Normal temperature General lower extremity: Normal inspection, Nontender, Normal color, Normal ROM , Normal temperature, Normal weight bearing. No: Janette's sign - Neurological Neuro grossly intact: Yes Cognition: Normal Orientation: AAOx4 Henley Coma Scale Eye Opening: Spontaneous Maci Coma Scale Verbal: Oriented Maci Coma Scale Motor: Obeys Commands Maci Coma Scale Total: 15 Speech: Normal Motor strength normal: LUE, RUE, LLE, RLE Sensory: Normal - Psychological Associated symptoms: Normal affect, Normal mood - Skin Skin Temperature: Warm Skin Moisture: Dry Skin Color: Normal Course - Re-evaluation Re-evalutation: 08/15/18 23:30 Bleeding look to be coming from the patient's hemorrhoid. No gross blood no signs of anemia lab work patient will be discharged home with [facility] recommend follow-up Dr. Cardona patient states has an appointment on Friday - Vital Signs Vital signs: Temp Pulse Resp BP Pulse Ox 98.4 F 72 17 177/74 H 96 08/15/18 19:07 08/15/18 19:07 08/15/18 19:07 08/15/18 19:07 08/15/18 19:07 - Laboratory Result Diagrams: 08/15/18 19:24 08/15/18 19:24 Laboratory results interpreted by me: 08/15/18 19:24 Est GFR (Non-Af Amer) 50 L Glucose 119 H Discharge - Discharge Clinical Impression: Acute hemorrhoid Condition: Good Disposition: HOME, SELF-CARE Instructions: HC Hemorrhoid Cream ([facility]), Hemorrhoids ([facility]) Additional Instructions: Please applied hemorrhoid cream as prescribed. Please make sure that you continue your fiber supplements I would also recommend stool softeners to make sure that your stool is soft please follow-up with Dr. Cardona your GI specialist for further evaluation of your hemorrhoids. Prescriptions: Hydrocortisone/Pramoxine [Analpram Hc 2.5% Crm Singles] 48 gm RC TID #1 tube Referrals: ODILON LION PA [NO LOCAL MD] - Follow up as needed
[2018-08-15] MEDS ORDERED: PRAMOXINE HCL/MINERAL OIL/ZNOX OINT 28.3 GM PR ONE (21:24)
== END 2018-08-15 21:26 | disposition home or self-care (01) ==
LOC: ER 19:01
DX: K64.4 Residual hemorrhoidal skin tags (principal); I10 Essential (primary) hypertension; Z98.890 Other specified postprocedural states; Z87.891 Personal history of nicotine dependence
CPT/HCPCS: 36415; 80053; 85025; 99283; J3490

== ENCOUNTER 2018-12-19 05:16 | Emergency (ER) | payer MEDICARE, MEDICAID ==
--- NOTE | 2018-12-19 07:09 | ER Document Report ---
ED General - General Chief Complaint: High Blood Pressure Stated Complaint: HIGH BLOOD PRESSURE Time Seen by Provider: 12/19/18 06:35 Primary Care Provider: JESSIE JOHNSON MD [Primary Care Provider] - Follow up as needed TRAVEL OUTSIDE OF THE [place] IN LAST 30 DAYS: No - HPI Patient complains to provider of: Elevated blood pressure Notes: Patient coming in for concern for her elevated blood pressure. Patient states she woke up this morning with her blood pressure elevated higher than it normally has been in the past. Patient states number was approximately 150-160 systolic. Patient states she has not taken her morning blood pressure medication. Patient states night prior to arrival she did have a TV dinner meal before that was a turkey sandwich. Patient has no other complaints no head pain chest pain abdominal pain fevers chills nausea vomiting diarrhea. Patient states she is currently being treated by her primary care physician for a viral cough. Patient states she is taking a little green capsule to help out with her cough. Patient otherwise looks to be in no obvious distress. Resting comfortably upon my evaluation - Related Data Allergies/Adverse Reactions: levofloxacin [From Levaquin] Adverse Reaction (Severe, Verified 12/07/17 14:07) Nausea ciprofloxacin [From Cipro] Adverse Reaction (Intermediate, Verified 12/07/17 14:07) Nausea Past Medical History - Social History Smoking Status: Never Smoker Chew tobacco use (# tins/day): No Frequency of alcohol use: None Drug Abuse: None Family History: Reviewed & Not Pertinent Patient has suicidal ideation: No Patient has homicidal ideation: No - Past Medical History Cardiac Medical History: Reports: Hx Hypercholesterolemia, Hx Hypertension Denies: Hx Congestive Heart Failure Pulmonary Medical History: Denies: Hx COPD Endocrine Medical History: Denies: Hx Diabetes Mellitus Type 1, Hx Diabetes Mellitus Type 2 Renal/ Medical History: Denies: Hx Peritoneal Dialysis Musculoskeletal Medical History: Reports Hx Arthritis - Immunizations Hx Diphtheria, Pertussis, Tetanus Vaccination: Yes - NOT UTD Review of Systems - Review of Systems Constitutional: Other - Concern for blood pressure EENT: No symptoms reported Cardiovascular: No symptoms reported Respiratory: No symptoms reported Gastrointestinal: No symptoms reported Genitourinary: No symptoms reported Female Genitourinary: No symptoms reported Musculoskeletal: No symptoms reported Skin: No symptoms reported Hematologic/Lymphatic: No symptoms reported Neurological/Psychological: No symptoms reported -: Yes All other systems reviewed and negative Physical Exam - Vital signs Vitals: Temp Pulse Resp BP Pulse Ox 98.0 F 76 20 164/82 H 97 12/19/18 05:20 12/19/18 05:20 12/19/18 05:20 12/19/18 05:20 12/19/18 05:20 Interpretation: Normal - General General appearance: Appears well, Alert - HEENT Head: Normocephalic, Atraumatic Eyes: Normal Pupils: PERRL - Respiratory Respiratory status: No respiratory distress Chest status: Nontender Breath sounds: Normal Chest palpation: Normal - Cardiovascular Rhythm: Regular Heart sounds: Normal auscultation Murmur: Yes Systolic murmur grade 1-6: 3 - Abdominal Inspection: Normal Distension: No distension Bowel sounds: Normal Tenderness: Nontender Organomegaly: No organomegaly - Back Back: Normal, Nontender - Extremities General upper extremity: Normal inspection, Nontender, Normal color, Normal ROM, Normal temperature General lower extremity: Normal inspection, Nontender, Normal color, Normal ROM, Normal temperature, Normal weight bearing. No: Janette's sign - Neurological Neuro grossly intact: Yes Cognition: Normal Orientation: AAOx4 Maci Coma Scale Eye Opening: Spontaneous Maci Coma Scale Verbal: Oriented Maci Coma Scale Motor: Obeys Commands Maci Coma Scale Total: 15 Speech: Normal Motor strength normal: LUE, RUE, LLE, RLE Sensory: Normal - Psychological Associated symptoms: Normal affect, Normal mood - Skin Skin Temperature: Warm Skin Moisture: Dry Skin Color: Normal Course - Re-evaluation Re-evalutation: 12/19/18 07:32 Patient's physical examination reveals no new pathology. Patient is asymptomatic with her hypertension. Did recommend to the patient to take her blood pressure medication as prescribed watch her salt intake and to follow-up with her primary care physician after recording her blood pressure at home for further medication management. Patient states understanding will be discharged home. - Vital Signs Vital signs: Temp Pulse Resp BP Pulse Ox 98 F 78 16 152/76 H 98 12/19/18 07:20 12/19/18 07:20 12/19/18 07:20 12/19/18 07:20 12/19/18 07:20 Discharge - Discharge Clinical Impression: Elevated blood pressure reading Condition: Good Instructions: High Blood Pressure ([facility]) Additional Instructions: Please follow-up with your primary care physician. At this time your blood pressure reading is not requiring emergent treatment here in the ER. Please continue take all medication as prescribed by your physician when you return home. More likely your blood pressure is slightly elevated today because of an underlying viral illness causing her cough also due to eating a TV dinner that has a high concentration of salt. Please avoid excess salt. Please keep a record of your blood pressures at home to give to your physician only follow-up visit. Return to the ER if your symptoms worsen. Referrals: JESSIE JOHNSON MD [Primary Care Provider] - Follow up as needed
[2018-12-19 07:23] VITALS: BP 152/76
== END 2018-12-19 07:19 | disposition home or self-care (01) ==
LOC: ER 05:16
DX: I10 Essential (primary) hypertension (principal); Z79.899 Other long term (current) drug therapy; B34.9 Viral infection, unspecified; R05 Cough
CPT/HCPCS: 99283

== ENCOUNTER → 2019-03-04 | Outpatient (CLI) | payer MEDICARE, MEDICAID ==
[2019-03-04 08:07] LABS: HEMATOCRIT 40.3 % (36.0-47.0); HEMOGLOBIN 13.5 g/dL (12.0-15.5); MEAN CORPUSCULAR HEMOGLOBIN 31.7 pg (27.0-33.4); MEAN CORPUSCULAR HGB CONC 33.7 g/dL (32.0-36.0); MEAN CORPUSCULAR VOLUME 94 fl (80-97); PLATELET COUNT 270 10^3/uL (150-450); RED BLOOD COUNT 4.28 10^6/uL (3.72-5.28); RED CELL DISTRIBUTION WIDTH 13.9 % (11.5-14.0); WHITE BLOOD COUNT 7.2 10^3/uL (4.0-10.5)
[2019-03-04 08:27] LABS: ANION GAP 10 (5-19); BLOOD UREA NITROGEN 9 mg/dL (7-20); CARBON DIOXIDE 31 mmol/L (22-30); CHLORIDE 101 mmol/L (98-107); GLUCOSE 106 mg/dL (75-110); POTASSIUM 3.6 mmol/L (3.6-5.0); SODIUM 141.6 mmol/L (137-145)
[2019-03-04 10:56] LABS: APPEARANCE,URINE CLEAR; BILIRUBIN,URINE NEGATIVE (NEGATIVE); COLOR,URINE YELLOW; GLUCOSE, URINE NEGATIVE (NEGATIVE); KETONES,URINE NEGATIVE (NEGATIVE); LEUKOCYTE ESTERASE,URINE SMALL (NEGATIVE); NITRITE,URINE NEGATIVE (NEGATIVE); PROTEIN,URINE NEGATIVE (NEGATIVE); URINE SPECIFIC GRAVITY 1.015; UROBILINOGEN,URINE NEGATIVE mg/dL (<2.0)
== END ==
LOC: OD 07:05
PROVIDERS: ATTEND Internal Medicine Nephrology
DX: I12.9 Hypertensive chronic kidney disease with stage 1 through stage 4 chronic kidney disease, or unspecified chronic kidney disease (principal); N18.9 Chronic kidney disease, unspecified
CPT/HCPCS: 36415; 80048; 81001; 85027

== ENCOUNTER → 2019-06-02 | Outpatient (CLI) | payer MEDICARE, MEDICAID ==
--- NOTE | 2019-06-02 09:20 | RADIOLOGY REPORT (SQ) ---
EXAM DESCRIPTION: HIP LEFT AP/LATERAL COMPLETED DATE/TIME: 06/02/2019 9:04 am REASON FOR STUDY: UNSPECIFIED FALL, INITIAL ENCOUNTER,PAIN IN LT HIP M54.5 LOW BACK PAIN W19.XXXA UNSPECIFIED FALL, INITIAL ENCOUNTER M25.552 PAIN IN LEFT HIP COMPARISON: None. NUMBER OF VIEWS: Two views. TECHNIQUE: AP pelvis and additional frog-leg view of the left hip. LIMITATIONS: None. FINDINGS: MINERALIZATION: Decreased. LEFT HIP: No fracture or dislocation. No worrisome bone lesions. RIGHT HIP: No fracture or dislocation. No worrisome bone lesions. PUBIS AND ISCHIUM: No fracture. SACRUM: No fracture or dislocation. No worrisome bone lesions. LOWER LUMBAR SPINE: Lower lumbar facet arthropathy and spondylosis. SOFT TISSUES: No findings. OTHER: No other significant finding. IMPRESSION: No evidence of acute bony abnormality. Pelvic fractures are often occult on plain radiographs. If strong clinical suspicion for fracture, recommend CT or MR. TECHNICAL DOCUMENTATION: JOB ID: [id number] [employer]- All Rights Reserved Reading location - IP/workstation name: [email or web address]
--- NOTE | 2019-06-02 11:46 | RADIOLOGY REPORT (SQ) ---
EXAM DESCRIPTION: LUMBAR SPINE COMPLETE COMPLETED DATE/TIME: 06/02/2019 9:05 am REASON FOR STUDY: UNSPECIFIED FALL, INITIAL ENCOUNTER,LOW BACK PAIN M54.5 LOW BACK PAIN W19.XXXA U NSPECIFIED FALL, INITIAL ENCOUNTER M25.552 PAIN IN LEFT HIP COMPARISON: None. NUMBER OF VIEWS: Five views including obliques. TECHNIQUE: AP, lateral, oblique, and sacral radiographic images acquired of the lumbar spine. LIMITATIONS: None. FINDINGS: MINERALIZATION: Decreased. SEGMENTATION: 5 [id number]-cmf-uglglbr lumbar vertebral bodies. ALIGNMENT: Levoconvex curvature with straightening of the normal lumbar lordosis. VERTEBRAE: Maintained height. No fracture. Multilevel osteophytosis, greatest at L3-4. DISCS: Multilevel degenerative disc disease with disc height loss throughout the lumbar spine greates t at L3-4. There is associated multilevel osteophyte and endplate change. POSTERIOR ELEMENTS: No definite fracture. Multilevel facet arthropathy with osseous neural foraminal narrowing greatest at L3 through L5 HARDWARE: None in the spine. PARASPINAL SOFT TISSUES: Aortic atherosclerosis. PELVIS: Intact as visualized. No fractures or worrisome bone lesions. SI joints intact. OTHER: No other significant finding. IMPRESSION: No acute bony abnormality. Multilevel degenerative changes throughout the lumbar spine with disc height loss and facet arthropat hy greatest at L3 through L5. TECHNICAL DOCUMENTATION: JOB ID: [id number] [employer]- All Rights Reserved Reading location - IP/workstation name: [email or web address]
== END ==
LOC: OD 08:41
PROVIDERS: ATTEND Physician Assistant
DX: M25.552 Pain in left hip (principal); M51.36 Other intervertebral disc degeneration, lumbar region; M54.5 Low back pain; W19.XXXA Unspecified fall, initial encounter
CPT/HCPCS: 72110

== ENCOUNTER → 2019-06-08 | Outpatient (CLI) | payer MEDICARE, MEDICAID ==
--- NOTE | 2019-06-08 13:18 | RADIOLOGY REPORT (SQ) ---
EXAM DESCRIPTION: CT LT LOWER EXTREMITY WITHOUT COMPLETED DATE/TIME: 06/08/2019 9:05 am REASON FOR STUDY: FALL, SUBSEQUENT ENC (W19.XXXD), LEFT HIP PAIN (M25.552) M25.552 PAIN IN LEFT HIP W19.XXXD UNSPECIFIED FALL, SUBSEQUENT ENCOUNTER COMPARISON: None. TECHNIQUE: CT scan of the left hip performed without intravenous or oral contrast. Images reviewed with soft tissue and bone windows. Reconstructed coronal and sagittal MPR images reviewed. All imag es stored on PACS. All CT scanners at this facility use dose modulation, iterative reconstruction, and/or weight based d osing when appropriate to reduce radiation dose to as low as reasonably achievable (ALARA). [facility]: Dose Right [facility]: CareDose [facility]: Dose Right [facility]: Teradose 4D [facility]: [employer] RADIATION DOSE: CT Rad equipment meets quality standard of care and radiation dose reduction techniq ues were employed. CTDIvol: 6.2 mGy. DLP: 172 mGy-cm. mGy. LIMITATIONS: None. FINDINGS: PELVIC BONES: No acute fracture. No worrisome bone lesions. VISUALIZED SPINE: No acute findings. SYMPTOMATIC HIP: No acute fracture or dislocation. No worrisome bone lesions. OPPOSITE HIP: No acute fracture or dislocation. No worrisome bone lesions. 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 Mild diverticulosis coli. EXTRAPELVIC SOFT TISSUES: No significant findings. OTHER: No other significant finding. IMPRESSION: No significant or acute finding in the left hip. 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 M ild diverticulosis coli. TECHNICAL DOCUMENTATION: JOB ID: [id number] Quality ID # [id number]: Final reports with documentation of one or more dose reduction techniques (e.g., Au tomated exposure control, adjustment of the mA and/or kV according to patient size, use of iterative reconstruction technique) 2010 [employer]- All Rights Reserved Reading location - IP/workstation name: [email or web address]
== END ==
LOC: RAD 08:33
PROVIDERS: ATTEND Physician Assistant
DX: M25.552 Pain in left hip (principal); W19.XXXD Unspecified fall, subsequent encounter; I72.3 Aneurysm of iliac artery; K57.30 Diverticulosis of large intestine without perforation or abscess without bleeding

== ENCOUNTER 2019-11-29 17:12 | Emergency (ER) | payer MEDICARE, MEDICAID ==
--- NOTE | 2019-11-29 18:16 | ER Document Report ---
ED Medical Screen (RME) - General Chief Complaint: Rectal Bleeding Stated Complaint: RECTAL BLEEDING Time Seen by Provider: 11/29/19 18:14 Primary Care Provider: JESSIE JOHNSON MD [Primary Care Provider] - Follow up as needed Mode of Arrival: Ambulatory Information source: Patient Notes: 84-year-old female presented to ED for complaint of rectal bleeding. She states she did does have hemorrhoids that have been banded a couple times last year the last time was a couple months ago. She states she just started on Tamiflu 4 days ago. She states she is having pure liquid stools that are bright red. She states she is having blood that strep and on the toilet in the floor and on the paper. She states she is not on any blood thinners except for aspirin. She do es have high blood pressure and cholesterol. Is not straining at the stool she is having liquid stools. I have greeted and performed a rapid initial assessment of this patient. A comprehensive ED assessment and evaluation of the patient, analysis of test results and completion of medical decision making process will be conducted by an additional ED providers. TRAVEL OUTSIDE OF THE [place] IN LAST 30 DAYS: No - Related Data Allergies/Adverse Reactions: levofloxacin [From Levaquin] Adverse Reaction (Severe, Verified 11/29/19 18:10) Nausea ciprofloxacin [From Cipro] Adverse Reaction (Intermediate, Verified 11/29/19 18:10) Nausea Home Medications: baby asa....... Past Medical History - Social History Chew tobacco use (# tins/day): No Frequency of alcohol use: None Drug Abuse: None - Past Medical History Cardiac Medical History: Reports: Hx Hypercholesterolemia, Hx Hypertension Denies: Hx Congestive Heart Failure Pulmonary Medical History: Denies: Hx COPD Endocrine Medical History: Denies: Hx Diabetes Mellitus Type 1, Hx Diabetes Mellitus Type 2 Renal/ Medical History: Denies: Hx Peritoneal Dialysis Musculoskeltal Medical History: Reports Hx Arthritis - Immunizations Hx Diphtheria, Pertussis, Tetanus Vaccination: Yes - NOT UTD Physical Exam - Vital signs Vitals: Temp Pulse Resp BP Pulse Ox 98.2 F 89 20 135/92 H 100 11/29/19 17:25 11/29/19 17:25 11/29/19 17:25 11/29/19 17:25 11/29/19 17:25 Course - Vital Signs Vital signs: Temp Pulse Resp BP Pulse Ox 98.4 F 67 18 150/74 H 95 11/29/19 17:36 11/29/19 17:36 11/29/19 17:36 11/29/19 17:36 11/29/19 17:36 Doctor's Discharge - Discharge Referrals: JESSIE JOHNSON MD [Primary Care Provider] - Follow up as needed
[2019-11-29] MEDS ORDERED: NORMAL SALINE 1000 ML 1,000 ML IV ONE (18:42)
[2019-11-29 19:09] LABS: ABSOLUTE NEUT (AUTO) 3.4 10^3/uL (1.7-8.2); BASOPHILS % (AUTO) 0.6 % (0-2); EOSINOPHILS % (AUTO) 0.2 % (0-6); HEMATOCRIT 41.5 % (36.0-47.0); HEMOGLOBIN 14.7 g/dL (12.0-15.5); LYMPHOCYTES % (AUTO) 30.9 % (13-45); MEAN CORPUSCULAR HEMOGLOBIN 32.8 pg (27.0-33.4); MEAN CORPUSCULAR HGB CONC 35.4 g/dL (32.0-36.0); MEAN CORPUSCULAR VOLUME 93 fl (80-97); MONOCYTES % (AUTO) 15.6 % (3-13); PLATELET COUNT 265 10^3/uL (150-450); RED BLOOD COUNT 4.48 10^6/uL (3.72-5.28); RED CELL DISTRIBUTION WIDTH 14.2 % (11.5-14.0); SEGMENTED NEUTROPHILS % (AUTO) 52.7 % (42-78); TOTAL CELLS COUNTED % (AUTO) 100 %; WHITE BLOOD COUNT 6.5 10^3/uL (4.0-10.5)
[2019-11-29 19:18] LABS: INTERNATIONAL RATION (INR) 0.86; PROTHROMBIN TIME 11.7 SEC (11.4-15.4)
[2019-11-29 19:28] LABS: ALBUMIN 4.2 g/dL (3.5-5.0); ALKALINE PHOSPHATASE 71 U/L (38-126); ANION GAP 12 (5-19); ASPARTATE AMINO TRANSFERASE 50 U/L (14-36); BILIRUBIN,TOTAL 0.5 mg/dL (0.2-1.3); BLOOD UREA NITROGEN 15 mg/dL (7-20); CALCIUM 9.4 mg/dL (8.4-10.2); CARBON DIOXIDE 29 mmol/L (22-30); CHLORIDE 87 mmol/L (98-107); GLUCOSE 117 mg/dL (75-110); POTASSIUM 3.7 mmol/L (3.6-5.0); TOTAL PROTEIN 7.6 g/dL (6.3-8.2)
[2019-11-29] MEDS ORDERED: LIDOCAINE 2% JELLY 5 ML TUBE ONE (20:04)
--- NOTE | 2019-11-29 20:21 | PDOC CONSULTATION ---
Consultation Consult Date: 11/29/19 Attending physician:: talib Provider Consulted: LON NETTLES Consult reason:: Rectal bleeding History of Present Illness Admission Date/PCP: JESSIE JOHNSON MD History of Present Illness: ALEK TOPETE is a 84 year old female Presents to the emergency room via ground rescue with a several day history of abnormal bowel movements, loose, with rectal bleeding. She has a history of at least 6 hemorrhoidal banding procedures performed by Dr. Cardona in the past year. She has had multiple colonoscopies as well. She is on aspirin. She denies constipation but mostly diarrhea. She is seen in the emergency department where she was found to have external hemorrhoids that resemble sausage. Surgery was consulted. Past Medical History Past Medical History: Abdominal aortic aneurysm Cardiac Medical History: Reports: Hyperlipidema, Hypertension Denies: Congestive Heart Failure Pulmonary Medical History: Denies: Chronic Obstructive Pulmonary Disease (COPD) Endocrine Medical History: Denies: Diabetes Mellitus Type 1, Diabetes Mellitus Type 2 Musculoskeltal Medical History: Reports: Arthritis Past Surgical History Past Surgical History: Multiple endoscopic procedures Social History Information Source: Patient Smoking Status: Former Smoker Electronic Cigarette use?: No Frequency of Alcohol Use: Rare Hx Recreational Drug Use: No Family History Family History: None, Reviewed & Not Pertinent Parental Family History Reviewed: No Children Family History Reviewed: No Sibling(s) Family History Reviewed.: No Medication/Allergy Home Medications: Amlodipine Besylate [Norvasc 5 mg Tablet] 10 mg PO DAILY 09/07/11 Aspirin [Aspirin 81 mg Chewable Tablet] 81 mg PO DAILY 09/07/11 Atorvastatin Calcium [Lipitor 20 Mg Tablet] 80 mg PO QHS 09/07/11 Metoprolol Tartrate [Lopressor 100 Mg Tablet] 100 mg PO BID 09/07/11 Beclomethasone Dipropionate [Qvar] 1 puff IH BID 12/07/17 Clonidine HCl 0.1 mg PO QHS 12/07/17 Docusate Sodium [Colace 100 mg Capsule] 100 mg PO DAILY 12/07/17 Fluticasone Propionate [Flonase Nasal [place] 50 Mcg/[place] 16 gm] 1 spray IN DAILY 12/07/17 Folic Acid 1 mg PO DAILY 12/07/17 Ipratropium Speed 2 spray IN BID 12/07/17 [place]-3 Fatty Acids/Fish Oil [Fish Oil 1,000 mg Capsule] 1 tab PO DAILY 12/07/17 Omeprazole 20 mg PO DAILY 12/07/17 Hydrocortisone/Pramoxine [Analpram Hc 2.5% Crm Singles] 48 gm RC TID #1 tube 08/15/18 Allergies/Adverse Reactions: levofloxacin [From Levaquin] Adverse Reaction (Severe, Verified 11/29/19 18:10) Nausea ciprofloxacin [From Cipro] Adverse Reaction (Intermediate, Verified 11/29/19 18:10) Nausea Review of Systems Constitutional: PRESENT: as per HPI Eyes: ABSENT: visual disturbances Cardiovascular: ABSENT: chest pain, dyspnea on exertion, edema, orthropnea, palpitations Respiratory: ABSENT: cough, hemoptysis Gastrointestinal: PRESENT: as per HPI, other - Multiple colonoscopies, hemorrhoidal banding procedures Physical Exam Vital Signs: Temp Pulse Resp BP Pulse Ox 98.4 F 67 25 H 158/69 H 98 11/29/19 17:36 11/29/19 17:36 11/29/19 19:01 11/29/19 19:01 11/29/19 19:01 Intake & Output 11/28/19 11/29/19 11/30/19 06:59 06:59 06:59 Weight 57.4 kg General appearance: PRESENT: no acute distress Head exam: PRESENT: normocephalic Eye exam: PRESENT: EOMI Mouth exam: PRESENT: dry mucosa Neck exam: PRESENT: full ROM Respiratory exam: PRESENT: clear to auscultation yoana Cardiovascular exam: PRESENT: RRR Pulses: PRESENT: normal carotid pulses Rectal exam: PRESENT: other - Patient rolled in left lateral cubitus position. External hemorrhoids, small, collapsed appreciated. Lubricated lidocaine jelly finger into the anal canal reveals no palpable masses stricture etc. There may be some postoperative changes patient. No anoscope available for further evaluation Musculoskeletal exam: PRESENT: full ROM Neurological exam: PRESENT: oriented to person, oriented to place, oriented to time, oriented to situation Psychiatric exam: PRESENT: appropriate affect Skin exam: PRESENT: dry Results Laboratory Results: 11/29/19 18:45 11/29/19 18:45 11/29/19 11/29/19 11/29/19 18:45 18:45 18:45 WBC 6.5 RBC 4.48 Hgb 14.7 Hct 41.5 MCV 93 MCH 32.8 MCHC 35.4 RDW 14.2 H Plt Count 265 Seg Neutrophils % 52.7 Sodium 128.1 L Potassium 3.7 Chloride 87 L Carbon Dioxide 29 Anion Gap 12 BUN 15 Creatinine 1.20 Est GFR ( Amer) 52 L Glucose 117 H Calcium 9.4 Total Bilirubin 0.5 AST 50 H Alkaline Phosphatase 71 Total Protein 7.6 Albumin 4.2 Blood Type A POSITIVE Antibody Screen NEGATIVE Assessment & Plan - Diagnosis (1) Rectal bleeding Is this a current diagnosis for this admission?: Yes Plan: Impression: Acute bleeding likely related to post hemorrhoidectomy 1 month ago, specifically hemorrhoidal banding by Dr. AGOSTO, 1 in a series of 6 over the past year. Symptoms likely related to change in bowel habits secondary to a recent biotic therapy. Patient is on low-dose aspirin. Currently h emodynamically stable without drop in hemoglobin. No indication for operative intervention Recommendations: 1. Clinical impression as stated above was explained to patient, and nursing staff. Incidentally, I am familiar with this patient I have followed her for years, radiographically , for known abdominal aortic aneurysm not requiring operative intervention. 2. I prefer to perform a quick anoscopy but none was available in the emergency department nor in the operating room. 3. I think the patient can be managed expectantly discharged home, with aspirin holiday for a week. If patient continues to bleed, she can return to [place] [facility] for further evaluation. (2) Status post hemorrhoidectomy Is this a current diagnosis for this admission?: Yes (3) Abdominal aortic aneurysm Is this a current diagnosis for this admission?: Yes - Time Time Spent: 50 to 70 Minutes Smoking Cessation Education: 3 to 10 minutes Medications reviewed and adjusted accordingly: Yes Anticipated discharge: Home
--- NOTE | 2019-11-29 20:24 | ER Document Report ---
ED General - General Chief Complaint: Rectal Bleeding Stated Complaint: RECTAL BLEEDING Time Seen by Provider: 11/29/19 18:14 Primary Care Provider: JESSIE JOHNSON MD [Primary Care Provider] - Follow up tomorrow Mode of Arrival: Ambulatory Information source: Patient TRAVEL OUTSIDE OF THE [place] IN LAST 30 DAYS: No - HPI Notes: Patient presents with rectal bleeding. She denies rectal pain. She states she had a hemorrhoidectomy several weeks ago at an outside facility. She states today she noticed some bright red blood from her rectum. She denies any other symptoms. She has not been lightheaded or dizzy. She has had no pain. She had no nausea or vomiting. She states that she has had the bleeding after several bowel movements today. Symptoms been intermittent. Nothing makes it better or worse. They have been mild in intensity. There is no radiation of the symptoms. - Related Data Allergies/Adverse Reactions: levofloxacin [From Levaquin] Adverse Reaction (Severe, Verified 11/29/19 18:10) Nausea ciprofloxacin [From Cipro] Adverse Reaction (Intermediate, Verified 11/29/19 18:10) Nausea Home Medications: baby asa....... Past Medical History - General Information source: Patient - Social History Smoking Status: Former Smoker Chew tobacco use (# tins/day): No Frequency of alcohol use: None Drug Abuse: None Family History: Reviewed & Not Pertinent Patient has suicidal ideation: No Patient has homicidal ideation: No - Past Medical History Cardiac Medical History: Reports: Hx Hypercholesterolemia, Hx Hypertension Denies: Hx Congestive Heart Failure Pulmonary Medical History: Denies: Hx COPD Endocrine Medical History: Denies: Hx Diabetes Mellitus Type 1, Hx Diabetes Mellitus Type 2 Renal/ Medical History: Denies: Hx Peritoneal Dialysis Musculoskeletal Medical History: Reports Hx Arthritis - Immunizations Hx Diphtheria, Pertussis, Tetanus Vaccination: Yes - NOT UTD Review of Systems - Review of Systems Constitutional: denies: Chills, Fever Cardiovascular: denies: Chest pain, Palpitations Respiratory: denies: Cough, Short of breath -: Yes All other systems reviewed and negative Physical Exam - Vital signs Vitals: Temp Pulse Resp BP Pulse Ox 98.2 F 89 20 135/92 H 100 11/29/19 17:25 11/29/19 17:25 11/29/19 17:25 11/29/19 17:25 11/29/19 17:25 Interpretation: Normal - General General appearance: Appears well, Alert - HEENT Head: Normocephalic, Atraumatic Eyes: Normal Pupils: PERRL - Respiratory Respiratory status: No respiratory distress Chest status: Nontender Breath sounds: Normal Chest palpation: Normal - Cardiovascular Rhythm: Regular Heart sounds: Normal auscultation Murmur: No - Abdominal Inspection: Normal Distension: No distension Bowel sounds: Normal Tenderness: Nontender Organomegaly: No organomegaly - Rectal Tenderness: Yes Stool: Bloody Hemorrhoids: External, Other - Patient has several external hemorrhoids which are mildly tender. No significant thrombosis. There is no active bleeding from the hemorrhoid. But there is some blood on the hemorrhoid. - Back Back: Normal, Nontender - Extremities General upper extremity: Normal inspection, Nontender, Normal color, Normal ROM, Normal temperature General lower extremity: Normal inspection, Nontender, Normal color, Normal ROM, Normal temperature, Normal weight bearing. No: Janette's sign - Neurological Neuro grossly intact: Yes Cognition: Normal Orientation: AAOx4 [place] Coma Scale Eye Opening: Spontaneous [place] Coma Scale Verbal: Oriented [place] Coma Scale Motor: Obeys Commands Maci Coma Scale Total: 15 Speech: Normal Motor strength normal: LUE, RUE, LLE, RLE Sensory: Normal - Psychological Associated symptoms: Normal affect, Normal mood - Skin Skin Temperature: Warm Skin Moisture: Dry Skin Color: Normal Course - Re-evaluation Re-evalutation: 11/29/19 20:22 Patient presents with rectal bleeding. Obviously the concern was whether or not patient was bleeding from the hemorrhoid or was having a GI bleed. Since patient's vital signs are stable, there is no abdominal pain, and patient is asymptomatic it seems most likely that she is bleeding from a hemorrhoid. Patient did have a recent hemorrhoidectomy. The tissue around the hemorrhoids is somewhat macerated so I requested that the surgeon Dr. Schofield consult on the patient. He did see the patient in the emergency department and examine her. Please see his note. He feels that the bleeding is from the hemorrhoidal tissue. We will have the patient stop aspirin and have her see her primary care physician in the morning. - Vital Signs Vital signs: Temp Pulse Resp BP Pulse Ox 98.4 F 67 25 H 158/69 H 98 11/29/19 17:36 11/29/19 17:36 11/29/19 19:01 11/29/19 19:01 11/29/19 19:01 - Laboratory Result Diagrams: 11/29/19 18:45 11/29/19 18:45 Laboratory results interpreted by me: 11/29/19 11/29/19 18:45 18:45 RDW 14.2 H [place] % (Auto) 15.6 H Sodium 128.1 L Chloride 87 L Est GFR ( Amer) 52 L Est GFR (MDRD) Non-Af 43 L Glucose 117 H AST 50 H Discharge - Discharge Clinical Impression: Rectal bleeding Condition: Stable Disposition: HOME, SELF-CARE Instructions: Rectal Bleeding, Unclear Cause ([facility]) Additional Instructions: Please see Dr. Johnson tomorrow Referrals: JESSIE JOHNSON MD [Primary Care Provider] - Follow up tomorrow
[2019-11-29] MEDS ORDERED: LIDOCAINE 2% JELLY 5 ML TUBE TOP ONE (20:31)
[2019-11-29 20:50] VITALS: BP 149/69
== END 2019-11-29 21:42 | disposition home or self-care (01) ==
LOC: ER 17:12
DX: K62.5 Hemorrhage of anus and rectum (principal); Z98.890 Other specified postprocedural states; Z88.8 Allergy status to other drugs, medicaments and biological substances; Z79.82 Long term (current) use of aspirin; Z87.891 Personal history of nicotine dependence; I10 Essential (primary) hypertension
CPT/HCPCS: 99284; 96360; 96361; 86900; 86901; 36415; 86850; 85025; 85610; 80053; J7030

== ENCOUNTER → 2019-12-09 | Outpatient (CLI) | payer MEDICARE, MEDICAID ==
--- NOTE | 2019-12-09 13:53 | RADIOLOGY REPORT (SQ) ---
EXAM DESCRIPTION: CHEST PA/LATERAL COMPLETED DATE/TIME: 12/09/2019 9:05 am REASON FOR STUDY: COUGH COMPARISON: 01/17/2015 EXAM PARAMETERS: NUMBER OF VIEWS: two views TECHNIQUE: Digital Frontal and Lateral radiographic views of the chest acquired. RADIATION DOSE: NA LIMITATIONS: none FINDINGS: LUNGS AND PLEURA: No opacities, masses or pneumothorax. No pleural effusion. MEDIASTINUM AND HILAR STRUCTURES: Hiatal hernia. (possibly paraesophageal). HEART AND VASCULAR STRUCTURES: Heart normal size. No evidence for failure. BONES: No acute findings. HARDWARE: None in the chest. OTHER: No other significant finding. IMPRESSION: Hiatal hernia. No acute cardiopulmonary finding. TECHNICAL DOCUMENTATION: JOB ID: [id number] 2011 [employer]- All Rights Reserved Reading location - IP/workstation name: [email or web address]
== END ==
LOC: OD 08:53
PROVIDERS: ATTEND Physician Assistant
DX: K44.9 Diaphragmatic hernia without obstruction or gangrene (principal); R05 Cough
CPT/HCPCS: 71046

== ENCOUNTER → 2020-07-10 | Outpatient (CLI) | payer MEDICARE, MEDICAID ==
[2020-07-10 08:39] LABS: ABSOLUTE BASOPHILS # (AUTO) 0.1 10^3/uL (0.0-0.2); ABSOLUTE EOSINOPHILS # (AUTO) 0.1 10^3/uL (0.0-0.6); ABSOLUTE LYMPHOCYTES (AUTO) 1.8 10^3/uL (0.5-4.7); ABSOLUTE MONOCYTES (AUTO) 0.8 10^3/uL (0.1-1.4); ABSOLUTE NEUT (AUTO) 4.2 10^3/uL (1.7-8.2); EOSINOPHILS % (AUTO) 1.4 % (0-6); HEMATOCRIT 38.9 % (36.0-47.0); HEMOGLOBIN 13.3 g/dL (12.0-15.5); LYMPHOCYTES % (AUTO) 26.1 % (13-45); MEAN CORPUSCULAR HEMOGLOBIN 32.9 pg (27.0-33.4); MEAN CORPUSCULAR HGB CONC 34.3 g/dL (32.0-36.0); MEAN CORPUSCULAR VOLUME 96 fl (80-97); MONOCYTES % (AUTO) 11.5 % (3-13); PLATELET COUNT 244 10^3/uL (150-450); RED BLOOD COUNT 4.05 10^6/uL (3.72-5.28); RED CELL DISTRIBUTION WIDTH 13.5 % (11.5-14.0); TOTAL CELLS COUNTED % (AUTO) 100 %; WHITE BLOOD COUNT 7.1 10^3/uL (4.0-10.5)
[2020-07-10 08:55] LABS: APPEARANCE,URINE CLEAR; BILIRUBIN,URINE NEGATIVE (NEGATIVE); COLOR,URINE YELLOW; GLUCOSE, URINE NEGATIVE (NEGATIVE); KETONES,URINE NEGATIVE (NEGATIVE); LEUKOCYTE ESTERASE,URINE LARGE (NEGATIVE); NITRITE,URINE NEGATIVE (NEGATIVE); PROTEIN,URINE NEGATIVE (NEGATIVE); URINE SPECIFIC GRAVITY 1.014; UROBILINOGEN,URINE NEGATIVE mg/dL (<2.0)
[2020-07-10 08:58] LABS: ANION GAP 8 (5-19); BLOOD UREA NITROGEN 18 mg/dL (7-20); CALCIUM 10.4 mg/dL (8.4-10.2); CARBON DIOXIDE 30 mmol/L (22-30); CHLORIDE 100 mmol/L (98-107); GLUCOSE 107 mg/dL (75-110)
[2020-07-10 09:42] LABS: POTASSIUM 4.8 mmol/L (3.6-5.0)
== END ==
LOC: OD 07:15
PROVIDERS: ATTEND Internal Medicine Nephrology
DX: I12.9 Hypertensive chronic kidney disease with stage 1 through stage 4 chronic kidney disease, or unspecified chronic kidney disease (principal); N18.3 Chronic kidney disease, stage 3 (moderate)
CPT/HCPCS: 36415; 80048; 81001; 85025

== ENCOUNTER 2020-07-29 21:55 | Emergency (ER) | payer MEDICARE, MEDICAID ==
--- NOTE | 2020-07-29 22:12 | ER Document Report ---
ED Medical Screen (RME) - General Chief Complaint: Probable Seizure Stated Complaint: POSSIBLE SEIZURE Time Seen by Provider: 07/29/20 22:04 Primary Care Provider: Rivera BOB MD [Primary Care Provider] - Follow up as needed Notes: Patient is an 84-year-old female who presents the emergency department after an episode of convulsions at home per the patient's significant other. Significant other states that the patient was in a recliner and started shaking. Patient does not have any history of seizures. Patient does have history of skin cancer at the top of her scalp. She had that removed. Patient does not remember the episode. Exam: Alert and oriented. I have greeted and performed a rapid initial assessment of this patient. A comprehensive ED assessment and evaluation of the patient, analysis of test results and completion of medical decision making process will be conducted by an additional ED providers. TRAVEL OUTSIDE OF THE U.S. IN LAST 30 DAYS: No - Related Data Allergies/Adverse Reactions: levofloxacin [From Levaquin] Adverse Reaction (Severe, Verified 11/29/19 18:10) Nausea ciprofloxacin [From Cipro] Adverse Reaction (Intermediate, Verified 11/29/19 18:10) Nausea Past Medical History - Past Medical History Cardiac Medical History: Reports: Hx Hypercholesterolemia, Hx Hypertension Denies: Hx Congestive Heart Failure Pulmonary Medical History: Denies: Hx COPD Endocrine Medical History: Denies: Hx Diabetes Mellitus Type 1, Hx Diabetes Mellitus Type 2 Renal/ Medical History: Denies: Hx Peritoneal Dialysis Musculoskeltal Medical History: Reports Hx Arthritis - Immunizations Hx Diphtheria, Pertussis, Tetanus Vaccination: Yes - NOT UTD Physical Exam - Vital signs Vitals: Temp Pulse Resp BP Pulse Ox 97.7 F 74 16 154/63 H 100 07/29/20 22:07 07/29/20 22:07 07/29/20 22:07 07/29/20 22:07 07/29/20 22:07 Course - Vital Signs Vital signs: Temp Pulse Resp BP Pulse Ox 97.7 F 74 16 154/63 H 100 07/29/20 22:07 07/29/20 22:07 07/29/20 22:07 07/29/20 22:07 07/29/20 22:07 Doctor's Discharge - Discharge Referrals: Rivera BOB MD [Primary Care Provider] - Follow up as needed
[2020-07-29 22:41] LABS: ABSOLUTE BASOPHILS # (AUTO) 0.1 10^3/uL (0.0-0.2); ABSOLUTE EOSINOPHILS # (AUTO) 0.1 10^3/uL (0.0-0.6); ABSOLUTE LYMPHOCYTES (AUTO) 3.3 10^3/uL (0.5-4.7); ABSOLUTE MONOCYTES (AUTO) 1.3 10^3/uL (0.1-1.4); ABSOLUTE NEUT (AUTO) 3.8 10^3/uL (1.7-8.2); BASOPHILS % (AUTO) 1.3 % (0-2); EOSINOPHILS % (AUTO) 1.5 % (0-6); HEMATOCRIT 39.6 % (36.0-47.0); HEMOGLOBIN 13.3 g/dL (12.0-15.5); LYMPHOCYTES % (AUTO) 38.2 % (13-45); MEAN CORPUSCULAR HEMOGLOBIN 32.5 pg (27.0-33.4); MEAN CORPUSCULAR HGB CONC 33.7 g/dL (32.0-36.0); MEAN CORPUSCULAR VOLUME 97 fl (80-97); MONOCYTES % (AUTO) 14.6 % (3-13); PLATELET COUNT 227 10^3/uL (150-450); RED CELL DISTRIBUTION WIDTH 13.5 % (11.5-14.0); SEGMENTED NEUTROPHILS % (AUTO) 44.4 % (42-78); TOTAL CELLS COUNTED % (AUTO) 100 %; WHITE BLOOD COUNT 8.6 10^3/uL (4.0-10.5)
[2020-07-29 23:09] LABS: PROTHROMBIN TIME 12.4 SEC (11.4-15.4)
[2020-07-29 23:10] LABS: PARTIAL THROMBOPLASTIN TIME 29.9 SEC (23.5-35.8)
[2020-07-29 23:16] LABS: ALBUMIN 4.2 g/dL (3.5-5.0); ALKALINE PHOSPHATASE 69 U/L (38-126); ANION GAP 10 (5-19); ASPARTATE AMINO TRANSFERASE 41 U/L (14-36); BILIRUBIN,DIRECT 0.3 mg/dL (0.0-0.4); BILIRUBIN,TOTAL 0.4 mg/dL (0.2-1.3); BLOOD UREA NITROGEN 19 mg/dL (7-20); CALCIUM 9.9 mg/dL (8.4-10.2); CARBON DIOXIDE 26 mmol/L (22-30); CHLORIDE 101 mmol/L (98-107); CREATINE KINASE 112 U/L (30-135); GLUCOSE 105 mg/dL (75-110); POTASSIUM 3.9 mmol/L (3.6-5.0); TOTAL PROTEIN 7.7 g/dL (6.3-8.2)
--- NOTE | 2020-07-29 23:32 | RADIOLOGY REPORT (SQ) ---
CT HEAD WITHOUT IV CONTRAST CLINICAL STATEMENT: AMS TECHNIQUE: Axial CT images from skull base to vertex without IV contrast. This exam was performed according to our departmental dose optimization program, and includes the following measures where applicable: automated exposure control, adjustment of the mAs and/or kVp according to patient size and/or exam, and an iterative reconstruction algorithm. COMPARISON: None. FINDINGS: There is no acute intracranial hemorrhage, mass, mass effect or abnormal extra-axial fluid collection. No evidence of an acute territorial infarct is identified. Ventricles and basilar cisterns are patent. There is age-related volume loss. Extensive low density is seen in the periventricular white matter bilaterally consistent with small vessel ischemic disease. 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 Vascular calcifications are present in the skull base. No acute process is seen. Calvaria: The skull base and calvaria demonstrate no abnormality. Paranasal sinuses: Visualized portions of the orbits and paranasal sinuses are unremarkable. skull base: Unremarkable IMPRESSION: 1. No intracranial hemorrhage or mass lesion. 2. Extensive white matter changes consistent with small vessel ischemic disease. 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
--- NOTE | 2020-07-29 23:39 | RADIOLOGY REPORT (SQ) ---
EXAM DESCRIPTION: XR CHEST 2 VIEWS COMPLETED DATE/TME: 07/29/2020 22:10 CLINICAL HISTORY: 84 years, Female, AMS EXAM DESCRIPTION: CLINICAL HISTORY: AMS COMPARISON: 12/09/2019. FINDINGS: Two views of the chest are submitted. There is a moderate probable hiatal hernia with gas fluid level. Moderate stool is in visualized colon. There is atelectasis at the left lung base. No other acute abnormality. Heart size is normal. No other evidence of focal consolidation. IMPRESSION: Masslike lesion at the lower thorax is most likely a moderate hiatal hernia. This is larger since the prior exam.
--- NOTE | 2020-07-30 00:06 | ER Document Report ---
ED Seizure - General Chief Complaint: Probable Seizure Stated Complaint: POSSIBLE SEIZURE Time Seen by Provider: 07/29/20 22:04 Primary Care Provider: KARINA DANIEL MD [NO LOCAL MD] - Follow up in 3-5 days Rivera BOB MD [ACTIVE STAFF] - Follow up as needed - [facility] Notes: Patient is an 84-year-old female with a past medical history of high blood pressure and high cholesterol who presents with seizure-like activity. She is accompanied by her son. He states that she was watching TV and when he looked over she had shaking of her right arm and right leg as well as her eyes "rolled in the back of her head". He states the episode lasted approximately 3 minutes. The patient states this happened to her several weeks ago as well. She did have a cancerous lesion removed from her head several months ago. Patient also mentions that she has been feeling somewhat off balance and it was attributed to her blood pressure medication. Otherwise, she denies any symptoms. No vision changes. No lightheadedness or dizziness. No numbness or tingling. - Related Data Allergies/Adverse Reactions: levofloxacin [From Levaquin] Adverse Reaction (Severe, Verified 11/29/19 18:10) Nausea ciprofloxacin [From Cipro] Adverse Reaction (Intermediate, Verified 11/29/19 18:10) Nausea Past Medical History - General Information source: Patient, Relative - Social History Smoking Status: Never Smoker Frequency of alcohol use: None Drug Abuse: None Family History: Reviewed & Not Pertinent Patient has homicidal ideation: No - Past Medical History Cardiac Medical History: Reports: Hx Hypercholesterolemia, Hx Hypertension Denies: Hx Congestive Heart Failure Pulmonary Medical History: Denies: Hx COPD Endocrine Medical History: Denies: Hx Diabetes Mellitus Type 1, Hx Diabetes Mellitus Type 2 Renal/ Medical History: Denies: Hx Peritoneal Dialysis Musculoskeletal Medical History: Reports Hx Arthritis - Immunizations Hx Diphtheria, Pertussis, Tetanus Vaccination: Yes - NOT UTD Review of Systems - Review of Systems Notes: CONSTITUTIONAL: No fever, fatigue or weight loss. SKIN: No rash. HENT: No congestion, ear pain, or sore throat. EYES: No recent vision problems or eye pain. ENDOCRINE: No thyroid problems. No polyuria or polydipsia. CARDIOVASCULAR: No chest pain or edema. RESPIRATORY: No cough, shortness of breath, congestion, or wheezing. GASTROINTESTINAL: No abdominal pain, nausea, vomiting, bloody stools or diarrhea. GENITOURINARY: No dysuria. Positive for increased urination. MUSCULOSKELETAL: No joint pain or swelling. LYMPHATIC: No swollen glands. NEUROLOGIC: Positive for seizure like activity. HEMATOLOGIC: No unusual bruising or bleeding. PSYCHIATRIC: No depression or anxiety. Physical Exam - Vital signs Vitals: Temp Pulse Resp BP Pulse Ox 97.7 F 74 16 154/63 H 100 07/29/20 22:07 07/29/20 22:07 07/29/20 22:07 07/29/20 22:07 07/29/20 22:07 - General General appearance: Appears well Notes: VITAL SIGNS: Within normal limits. GENERAL: No acute distress, non-toxic appearance. HEAD: Normal with no signs of head trauma. EYES: EOMI, conjunctiva normal, no discharge. EARS: Hearing grossly intact. NOSE: Normal. NECK: Normal range of motion, no tenderness, supple, no lymphadenopathy, No adenopathy, no JVD. CHEST: Clear breath sounds bilaterally. No wheezes, rales, or rhonchi. CARDIAC: Regular rate and rhythm. S1 and S2, without murmurs, gallops, or rubs. VASCULAR: No Edema. ABDOMEN: Normal and soft with no tenderness, no masses or pulsatile masses. GASTROINTESTINAL: Bowel sounds normal GENITOURINARY: Normal, No tenderness LYMPATHTIC: No lymphadenopathy noted. MUSCULOSKELETAL: Good range of motion of all major joints. Extremities without clubbing, cyanosis or edema. NEUROLOGICAL: Alert and oriented x 3. No focal sensory or strength deficits. Speech normal. Follows commands appropriately. PSYCHIATRIC: Normal Affect, judgement and mood. SKIN: Normal appearance with no rashes or lesions. Course - Re-evaluation Re-evalutation: 07/30/20 02:07 Patient appears well on exam. Her seizure activity is concerning for possible partial seizure. She ambulated to the restroom without difficulty. Patient's head CT does not show any masses. Patient's chest x-ray shows a likely hiatal hernia. Her lab work was unremarkable. Patient did have a urinalysis that shows possibility of an infection. With her symptoms of of increased urination, I will start her on Keflex. I did discuss with neurology at [facility] who recommended that patient follow-up with a neurologist on Friday. She did not think that patient needed to be placed on any antiepileptics as she has only had 2 episodes that were far apart. She recommended that patient return to the ER immediately if symptoms return. I discussed all this with the patient and her son. They are very agreeable to this. Patient states she would like to go home and she feels at baseline. Patient and her son were given strict return p recautions. I did give them the number for neurology. - Vital Signs Vital signs: Temp Pulse Resp BP Pulse Ox 98.3 F 60 18 115/67 98 07/30/20 01:38 07/30/20 01:38 07/30/20 01:38 07/30/20 01:38 07/30/20 01:38 - Laboratory Result Diagrams: 07/29/20 22:25 07/29/20 22:25 Laboratory results interpreted by me: 07/29/20 07/29/20 07/29/20 22:02 22:25 22:25 [place] % (Auto) 14.6 H Sodium 136.8 L Creatinine 1.38 H Est GFR ( Amer) 44 L Est GFR (MDRD) Non-Af 37 L AST 41 H Ur Leukocyte Esterase MODERATE H - Diagnostic Test Radiology reviewed: Image reviewed, Reports reviewed - EKG Interpretation by Me EKG shows normal: Sinus rhythm Rate: Normal Rhythm: NSR Heart block present: 1st Degree When compared to previous EKG there are: Previous EKG unavailable Additional EKG results interpreted by me: 07/30/20 00:06 Sinus rhythm at a rate of 64. QTc 409. First-degree AV block. No acute ST changes. No previous EKG available for comparison. Discharge - Discharge Clinical Impression: Seizure-like activity Urinary tract infection Qualifiers: Urinary tract infection type: site unspecified Hematuria presence: without hematuria Qualified Code(s): N39.0 - Urinary tract infection, site not specified Condition: Stable Disposition: HOME, SELF-CARE Instructions: New Seizure ([facility]), Urinary Tract Infection ([facility]) Additional Instructions: Please follow-up with the neurologist provided. You have a urinary tract infection. Please take your antibiotics as prescribed. Please return to the ER for any return of seizure-like activity. Prescriptions: Cephalexin Monohydrate [Keflex 500 mg Capsule] 500 mg PO BID 7 Days #14 capsule Referrals: Rivera BOB MD [ACTIVE STAFF] - Follow up as needed KARINA DANIEL MD [NO LOCAL MD] - Follow up in 3-5 days
[2020-07-30 00:35] LABS: APPEARANCE,URINE CLEAR; BILIRUBIN,URINE NEGATIVE (NEGATIVE); COLOR,URINE YELLOW; GLUCOSE, URINE NEGATIVE (NEGATIVE); KETONES,URINE NEGATIVE (NEGATIVE); LEUKOCYTE ESTERASE,URINE MODERATE (NEGATIVE); NITRITE,URINE NEGATIVE (NEGATIVE); PROTEIN,URINE NEGATIVE (NEGATIVE); URINE SPECIFIC GRAVITY 1.024; UROBILINOGEN,URINE NEGATIVE mg/dL (<2.0)
[2020-07-30] MEDS ORDERED: CEPHALEXIN 500 MG CAPSULE PO ONE (01:21)
[2020-07-30 01:40] VITALS: BP 115/67
--- NOTE | 2020-07-30 16:28 | EKG REPORT ---
SEVERITY:- ABNORMAL ECG - SINUS RHYTHM FIRST DEGREE AV BLOCK LVH BY VOLTAGE : Confirmed by: Linda Castaneda 30-Jul-2020 16:28:19
== END 2020-07-30 01:38 | disposition home or self-care (01) ==
LOC: ER 21:55
DX: R56.9 Unspecified convulsions (principal); N39.0 Urinary tract infection, site not specified; E78.00 Pure hypercholesterolemia, unspecified; I10 Essential (primary) hypertension
CPT/HCPCS: 93005; 99285; 36415; 87086; 82550; 83735; 85025; 85610; 85730; 80053; 81001; 71046; 70450; 93010; A9270

== ENCOUNTER → 2020-09-04 | Outpatient (CLI) | payer MEDICARE, MEDICAID ==
--- NOTE | 2020-09-04 11:25 | RADIOLOGY REPORT (SQ) ---
EXAM DESCRIPTION: HIP RIGHT AP/LATERAL IMAGES COMPLETED DATE/TIME: 09/04/2020 11:18 am REASON FOR STUDY: R HIP PAIN M25.551 PAIN IN RIGHT HIP COMPARISON: None. NUMBER OF VIEWS: Two views. TECHNIQUE: AP pelvis and additional frog legview of the right hip. LIMITATIONS: None. FINDINGS: MINERALIZATION: Normal. RIGHT HIP: No fracture or dislocation. No worrisome bone lesions. LEFT HIP: No fracture or dislocation. No worrisome bone lesions. Limited views. PUBIS AND ISCHIUM: No fracture. PELVIS: No fracture. SACRUM: No fracture or dislocation. No worrisome bone lesions. LOWER LUMBAR SPINE: No fracture or dislocation. No worrisome bone lesions. No significant disc disea se. SOFT TISSUES: No findings. OTHER: No other significant finding. IMPRESSION: NEGATIVE STUDY OF THE RIGHT HIP. NO RADIOGRAPHIC EVIDENCE OF ACUTE INJURY. TECHNICAL DOCUMENTATION: JOB ID: [id number] 2010 [employer]- All Rights Reserved Reading location - IP/workstation name: [email or web address]
== END ==
LOC: RAD 10:54
PROVIDERS: ATTEND Physician Assistant
DX: M25.551 Pain in right hip (principal)

== ENCOUNTER 2020-09-24 09:44 | Emergency (ER) | payer MEDICARE, MEDICAID ==
[2020-09-24 10:59] LABS: APPEARANCE,URINE SLIGHTLY-CLOUDY; BILIRUBIN,URINE NEGATIVE (NEGATIVE); COLOR,URINE YELLOW; GLUCOSE, URINE NEGATIVE (NEGATIVE); KETONES,URINE NEGATIVE (NEGATIVE); PROTEIN,URINE NEGATIVE (NEGATIVE); URINE SPECIFIC GRAVITY 1.019; UROBILINOGEN,URINE NEGATIVE mg/dL (<2.0)
--- NOTE | 2020-09-24 11:15 | RADIOLOGY REPORT (SQ) ---
EXAM DESCRIPTION: CT PELVIS WITHOUT IMAGES COMPLETED DATE/TIME: 09/24/2020 9:51 am REASON FOR STUDY: right hip pain. COMPARISON: No images are available for comparison. Report from right hip radiograph 09/04/2020. TECHNIQUE: CT scan of the pelvis performed without intravenous or oral contrast. Images reviewed wi th soft tissue and bone windows. Reconstructed coronal and sagittal MPR images reviewed. All images stored on PACS. All CT scanners at this facility use dose modulation, iterative reconstruction, and/or weight based d osing when appropriate to reduce radiation dose to as low as reasonably achievable (ALARA). [facility]: Dose Right [facility]: CareDose [facility]: Dose Right [facility]: Teradose 4D [facility]: [employer] RADIATION DOSE: CT Rad equipment meets quality standard of care and radiation dose reduction techniq ues were employed. CTDIvol: 10.3 mGy. DLP: 342 mGy-cm. mGy. LIMITATIONS: None. FINDINGS: PELVIC BONES: No acute fracture. No worrisome bone lesions. VISUALIZED SPINE: No acute findings. HIP(S): No acute fracture or dislocation. No worrisome bone lesions. PELVIC SOFT TISSUES: Sigmoid diverticulosis without evidence of diverticulitis. Vascular calcificati ons. 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 EXTRAPELVIC SOFT TISSUES: No significant findings. OTHER: No other significant finding. IMPRESSION: 1. No acute fracture or dislocation of the right hip or pelvis. 2. Colonic diverticulosis without evidence of diverticulitis. 3. 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 TECHNICAL DOCUMENTATION: JOB ID: [id number] Quality ID # [id number]: Final reports with documentation of one or more dose reduction techniques (e.g., Au tomated exposure control, adjustment of the mA and/or kV according to patient size, use of iterative reconstruction technique) 2010 [employer]- All Rights Reserved Reading location - IP/workstation name: [email or web address]
--- NOTE | 2020-09-24 12:18 | ER Document Report ---
Entered by TOM DAY SCRIBE 09/24/20 1029 Acting as scribe for:IRASEMA ROQUE MD ED Hip Pain/Injury - General Chief Complaint: Hip Pain Stated Complaint: RIGHT HIP PAIN Primary Care Provider: JESSIE JOHNSON MD [Primary Care Provider] - Follow up as needed Mode of Arrival: Ambulatory Information source: Patient Notes: This 85 year old female patient presents to the ED today with complaints of right hip pain that started last night. Patient states that the pain is worse when she is getting up from the chair. She reports taking Tylenol which provided relief. She notes that her PCP Dr. Johnson sent her here on 09/04 for a x-ray of her right hip which was unremarkable. Denies recent injury, fall, or trauma. Denies back pain, trouble urinating, or change in bowel habits. She is able to ambulate without any difficulty. TRAVEL OUTSIDE OF THE [place] IN LAST 30 DAYS: No - Related Data Allergies/Adverse Reactions: levofloxacin [From Levaquin] Adverse Reaction (Severe, Verified 11/29/19 18:10) Nausea ciprofloxacin [From Cipro] Adverse Reaction (Intermediate, Verified 11/29/19 18:10) Nausea Past Medical History - General Information source: Patient, [facility] Records - Social History Smoking Status: Former Smoker Cigarette use (# per day): No Chew tobacco use (# tins/day): No Smoking Education Provided: No Frequency of alcohol use: None Drug Abuse: None Lives with: Family Family History: Reviewed & Not Pertinent Patient has suicidal ideation: No Patient has homicidal ideation: No - Past Medical History Cardiac Medical History: Reports: Hx Hypercholesterolemia, Hx Hypertension Musculoskeletal Medical History: Reports Hx Arthritis - Immunizations Hx Diphtheria, Pertussis, Tetanus Vaccination: Yes - NOT UTD Review of Systems - Review of Systems Constitutional: No symptoms reported EENT: No symptoms reported Cardiovascular: No symptoms reported Respiratory: No symptoms reported Gastrointestinal: No symptoms reported Genitourinary: See HPI. denies: Dysuria Female Genitourinary: No symptoms reported Musculoskeletal: See HPI, Joint pain. denies: Back pain Skin: No symptoms reported Hematologic/Lymphatic: No symptoms reported Neurological/Psychological: See HPI. denies: Gait changes -: Yes All other systems reviewed and negative Physical Exam - Vital signs Vitals: Temp Resp BP 97.4 F 16 160/84 H 09/24/20 09:56 09/24/20 09:56 09/24/20 09:56 Interpretation: Normal - General General appearance: Appears well, Alert In distress: None - HEENT Head: Normocephalic, Atraumatic Eyes: Normal Pupils: PERRL Neck: Normal, Supple - Respiratory Respiratory status: No respiratory distress Chest status: Nontender Breath sounds: Normal Chest palpation: Normal - Cardiovascular Rhythm: Regular Heart sounds: Normal auscultation Murmur: No Friction rub: No Gallop: None auscultated - Abdominal Inspection: Normal Distension: No distension Bowel sounds: Normal Tenderness: Nontender - Abdomen soft Organomegaly: No organomegaly - Back Back: Normal, Nontender. No: CVA tenderness - Extremities General upper extremity: Normal inspection General lower extremity: No: Edema Hip: Tender - Point tenderness just below greater trochanter of left lateral hip. No: Abrasion, Deformity - or crepitus, Dislocation, Ecchymosis, Instability, Pain with ROM, Unable to bear weight - Neurological Neuro grossly intact: Yes Orientation: AAOx4 Maci Coma Scale Eye Opening: Spontaneous Maci Coma Scale Verbal: Oriented Maci Coma Scale Motor: Obeys Commands Maci Coma Scale Total: 15 - Psychological Associated symptoms: Normal affect, Normal mood - Skin Skin Temperature: Warm Skin Moisture: Dry Skin Color: Normal Course - Re-evaluation Re-evalutation: 09/24/20 12:12 Patient states again she has no right hip pain at this time. - Vital Signs Vital signs: Temp Pulse Resp BP Pulse Ox 97.4 F 64 16 160/84 H 09/24/20 09:56 09/24/20 10:15 09/24/20 09:56 09/24/20 09:56 09/24/20 12:13 Vital signs stable - Laboratory Results Laboratory Results Interpreted: 09/24/20 10:16 Leukocyte Esterase Rfl LARGE H No critical labs patient has a urinalysis that shows leukocyte esterase large amount with nitrite negative and trace bacteria. Patient reports she has no symptoms of frequency discomfort burning back pain. I explained the patient will do a urine culture and if she gets call regarding a urine culture and she does have a urinary tract infection which we will begin antibiotics at that time. Critical Laboratory Results Reviewed: No Critical Results - Radiology Results Radiology Results Interpreted: 09/24/20 12:[address] 09/24/20 10:32 IMPRESSION: 1. No acute fracture or dislocation of the right hip or pelvis. 2. Colonic diverticulosis without evidence of diverticulitis. 3. 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 shows no acute fracture dislocation of the right hip or pelvis diverticulosis without diverticulitis right common iliac artery aneurysm 2 cm. Patient was explained this 2 cm iliac right artery aneurysm that it needs to be monitored by her primary care provider and once it gets to us size of 3 to 3.5cm there may be a reason to do her procedure to protect this aneurysm from leaking. Critical Radiology Results Reviewed: No Critical Results Discharge - Discharge Clinical Impression: Right hip pain, Iliac artery aneurysm, right Condition: Stable Disposition: HOME, SELF-CARE Additional Instructions: Arthralgia Arthralgia is pain in the joints. We use the word arthralgia to describe joint pain where there's no history of injury, no known joint disease, and the joints are normal to examination. Arthralgia can be a symptom of an acute illness, such as influenza, hepatitis, or serum sickness. Sometimes the joint pain comes before any other symptoms. Arthralgia can also be an early symptom of joint disease, such as rheumatoid arthritis or lupus. If arthralgia is accompanied by an acute illness that explains the joint pain, such as mononucleosis, no further testing needs to be done. When there's no clear reason for the pain, tests may be done to see if there's an inflammatory disease of the joints. The usual treatment is anti-inflammatory medication, such as ibuprofen. Joint aches can be soothed with a heating pad or hot compress. If joints remain painful more than a few days, you'll need testing and followup. Return if a joint becomes swollen, red, or severely painful. Recommended to patient that use Tylenol as needed for hip pain. And to be sure she follows up with her primary care provider regarding monitoring of right iliac artery 2 cm aneurysm. Referrals: JESSIE JOHNSON MD [Primary Care Provider] - Follow up as needed I personally performed the services described in the documentation, reviewed and edited the documentation which was dictated to the scribe in my presence, and it accurately records my words and actions.
[2020-09-24 12:56] VITALS: BP 138/66
== END 2020-09-24 12:56 | disposition home or self-care (01) ==
LOC: ER 09:44
DX: I72.3 Aneurysm of iliac artery (principal); M25.551 Pain in right hip; E78.00 Pure hypercholesterolemia, unspecified; I10 Essential (primary) hypertension; Z88.3 Allergy status to other anti-infective agents
CPT/HCPCS: 36415; 72192; 81001; 87086; 99284